=== PATIENT | female | born 1940 | race Caucasian/White ===

== ENCOUNTER → 2016-12-25 | Day surgery (SDC) | payer MEDICARE, BC ==
[~2016-12-25] MED LIST: LACTATED RINGER'S 1000 ML INJ 1,000 ML ONE; PROPOFOL 500 MG/50 ML BTL IV ONE
--- NOTE | 2016-12-25 14:13 | GIPROC ---
[facility] [address] [facility], [address] EGD PROCEDURE REPORT EXAM DATE: 12/25/2016 PATIENT NAME: Maggi Breen MR #: [id number] BIRTHDATE: 1940 ATTENDING: Susie Turk MD ORDER #: [id number] CRIMINAL JUSTICE DEPARTMENT CHAIR: STATUS: outpatient INDICATIONS: The patient is a 76 yr old female here for an EGD due to anemia history of gastric ulcer PROCEDURE PERFORMED: EGD w/ biopsy MEDICATIONS: None and Per Anesthesia. TOPICAL ANESTHETIC: none CONSENT: The patient understands the risks and benefits of the procedure and understands that these risks include, but are not limited to: sedation, allergic reaction, infection, perforation and/or bleeding. Alternative means of evaluation and treatment include, among others: physical exam, x-rays, and/or surgical intervention. The patient elects to proceed with this endoscopic procedure. medical equipment was checked for proper function. Hand hygiene and appropriate measures for infection prevention was taken. After the risks, benefits and alternatives of the procedure were thoroughly explained, Informed consent was verified, confirmed and timeout was successfully executed by the treatment team. The patient was anesthetized with topical anesthesia and the EC-3490Li ([id number]) endoscope was introduced through the mouth and advanced to the second portion of the duodenum. Retroflexed views revealed a hiatal hernia The gastroscope was then slowly withdrawn and removed. Healed ulcer antrum-biopsy submucosal nodule -biopsy esophagitis distal esophagus -biopsy. ADVERSE EVENTS: There were no complications. IMPRESSIONS: 1. Healed ulcer antrum-biopsy submucosal nodule -biopsy esophagitis distal esophagus -biopsy 2. Retroflexed views revealed a hiatal hernia RECOMMENDATIONS: 1. Await biopsy results. Biopsy results will not be ready for 7-10 days. If you don't hear from us in two weeks, call our office for biopsy results. 2. Continue PPI 3. Start PPI 4. Avoid NSAIDS PATIENT CONDITION: stable DISPOSITION: Home REPEAT EXAM: Return 1 year EGD Susie Turk MD eSigned: Susie Turk MD 12/25/2016 2:12 PM cc: Kurt Jones [facility] Linda Ibrahim M.D. PATIENT NAME: Maggi Breen MR#: [id number]
--- NOTE | 2016-12-25 14:15 | GIPROC ---
[facility] [address] [facility], [address] COLONOSCOPY PROCEDURE REPORT EXAM DATE: 12/25/2016 PATIENT NAME: Maggi Breen MR #: [id number] BIRTHDATE: 1940 ENDOSCOPIST: Susie Turk MD ORDER #: [id number] COOKER MECHANIC: STATUS: outpatient INDICATIONS: The patient is a 76 yr old female here for a colonoscopy due to high risk patient with personal history of colonic polyps PROCEDURE PERFORMED: Colonoscopy, screening MEDICATIONS: None and Per Anesthesia. PREP QUALITY: good PREP TYPE:Other: ESTIMATED BLOOD LOSS: None CONSENT: The patient understands the risks and benefits of the procedure and understands that these risks include, but are not limited to: sedation, allergic reaction, infection, perforation and/or bleeding. Alternative means of evaluation and treatment include, among others: physical exam, x-rays, and/or surgical intervention. The patient elects to proceed with this endoscopic procedure. medical equipment was checked for proper function. Hand hygiene and appropriate measures for infection prevention was taken. After the risks, benefits and alternatives of the procedure were thoroughly explained, Informed consent was verified, confirmed and timeout was successfully executed by the treatment team. A digital exam revealed external hemorrhoids The EC-3490Li ([id number]) and EC-3490Li ([id number]) endoscope was introduced through the anus and advanced to the cecum, which was identified by both the appendix and ileocecal valve. The instrument was then slowly withdrawn as the colon was fully examined. COLON FINDINGS: Severe diverticulosis sigmoid,descending. Retroflexed views revealed internal hemorrhoids and Retroflexed views revealed small internal hemorrhoids The scope was then completely withdrawn from the patient and the procedure terminated. PROCEDURE WITHDRAWAL TIME:6minutes ADVERSE EVENTS: There were no complications. IMPRESSIONS: 1. Severe diverticulosis sigmoid,descending 2. Retroflexed views revealed internal hemorrhoids 3. Retroflexed views revealed small internal hemorrhoids 4. Revealed external hemorrhoids RECOMMENDATIONS: 1. Benefiber 2 tsp daily 2. Probiotics from any [employer] or health food store 3. Yearly rectal exams RECALL: Return 5 years Colonoscopy Susie Turk MD eSigned: Susie Turk MD 12/25/2016 2:14 PM cc: Kurt Jones [facility] Mckeon and Ave Ibrahim M.D.
== END | disposition home or self-care (01) ==
LOC: ESDC 10:05
PROVIDERS: ATTEND Internal Medicine Gastroenterology
DX: Z12.11 Encounter for screening for malignant neoplasm of colon (principal); Z86.010 Personal history of colon polyps; K64.4 Residual hemorrhoidal skin tags; K57.90 Diverticulosis of intestine, part unspecified, without perforation or abscess without bleeding; K64.8 Other hemorrhoids; D64.9 Anemia, unspecified; K25.9 Gastric ulcer, unspecified as acute or chronic, without hemorrhage or perforation; K44.9 Diaphragmatic hernia without obstruction or gangrene; K20.9 Esophagitis, unspecified
CPT/HCPCS: 00740; 00810; 43239; 45378; 88305; 88312; J3010; J7120

== ENCOUNTER → 2017-02-17 | Outpatient (CLI) | payer MEDICARE, BC ==
[~2017-02-17] MED LIST changes: +AMBI10TA PO; +AMLO5TAB2 PO; +CALC1TAB12 PO; +COMMODE 3-IN-11 MIS; +ENOX30P SQ; +FLUT1INH INH; +HYDR-3288 PO; -LACTATED RINGER'S 1000 ML INJ 1,000 ML ONE; +LEVO50TA4 PO; +LIPI20TA PO; +MELA1TAB18 PO; +OCUVTAB4 PO; +OMEG100046 PO; +PANT40TA3 PO; +PAXI30TA7 PO; -PROPOFOL 500 MG/50 ML BTL IV ONE; +SIMV40TA PO; +SUCR1TAB PO
[2017-02-17 11:12] LABS: AUTOMATED NEUTROPHIL # 4.3 TH/MM3 (1.8-7.7); BASOPHIL % 0.5 % (0.0-2.0); EOSINOPHIL # 0.1 TH/MM3 (0-0.4); EOSINOPHIL % 1.2 % (0.0-4.0); HEMATOCRIT 31.2 % (35.0-46.0); HEMO FLAGS DIFF FINAL; LYMPH % 21.4 % (9.0-44.0); LYMPHOCYTE # 1.3 TH/MM3 (1.0-4.8); MEAN CELL VOLUME 92.6 FL (80.0-100.0); MEAN CORPUSCULAR HEMOGLOBIN 31.4 PG (27.0-34.0); NEUT % 69.9 % (16.0-70.0); PLATELET COUNT 302 TH/MM3 (150-450); RED BLOOD COUNT 3.37 MIL/MM3 (4.00-5.30); RED CELL DISTRIBUTION WIDTH 14.3 % (11.6-17.2); WHITE BLOOD COUNT 6.2 TH/MM3 (4.0-11.0)
[2017-02-17 11:23] LABS: APTT (PATIENT) 26.8 SEC (24.3-30.1); PROTHROMBIN TIME - PATIENT 11.3 SEC (9.8-11.6)
[2017-02-17 11:34] LABS: BLOOD, URINE NEG (NEG); GLUCOSE,URINE NEG (NEG); KETONE, URINE NEG (NEG); NITRITE,URINE NEG (NEG); PH, URINE 5.5 (5.0-8.5); URINE COLOR YELLOW (YELLW/STRAW)
[2017-02-17 11:49] LABS: ANION GAP 9 MEQ/L (5-15); AST (GOT) 22 U/L (15-37); BICARBONATE 27.3 MEQ/L (21.0-32.0); BLOOD UREA NITROGEN 8 MG/DL (7-18); CHLORIDE 105 MEQ/L (98-107); GLOMERULAR FILTRATION RATE 110 ML/MIN (>89); GLUCOSE,FASTING 111 MG/DL (74-99); POTASSIUM 3.9 MEQ/L (3.5-5.1); SODIUM (NA) 141 MEQ/L (136-145)
[2017-02-17 11:57] LABS: WESTERGREN SEDIMENTATION RATE 57 mm/hr (0-30)
[2017-02-17 11:59] LABS: ALKALINE PHOSPHATASE 71 U/L (45-117); ALT (GPT) 19 U/L (10-53); TOTAL BILIRUBIN ADULT 0.3 MG/DL (0.2-1.0)
[2017-02-17 12:04] LABS: MUCUS URINE MANY /lpf (OCC); RBC, URINE 0-3 /hpf (0-3)
[2017-02-17 12:05] LABS: BACTERIA, URINE OCC /hpf; COMMENT (UR) CULT NOT INDICATED; CULTURE IF INDICATED CULT NOT INDICATED
--- NOTE | 2017-02-17 12:46 | RADRPT ---
EXAM DATE/TIME: 02/17/2017 11:52 [facility] COMPARISON: No previous studies available for comparison. INDICATIONS : Evaluate for pneumonia, pneumothorax or communicable disease. Pre-op right hip. MEDICAL HISTORY : Hypertension. Chronic obstructive pulmonary disease. SURGICAL HISTORY : None. ENCOUNTER: Initial ACUITY: 1 day PAIN SCORE: 0/10 LOCATION: chest FINDINGS: There is hyperinflation of the lungs suggestive of emphysema. The heart and mediastinal structures ar e normal. The pulmonary vascular pattern is normal. No focal infiltrate is noted. Degenerative change s and scoliosis of the thoraco-lumbar spine are noted. CONCLUSION: 1. Hyperinflation of lungs suggestive of emphysema. 2. No acute focal pulmonary or pulmonary vascular congestion. 3. Degenerative changes and scoliosis of the thoraco-lumbar spine. Thomas Wright MD on February 17, 2017 at 12:43 Board Certified Radiologist. This report was verified electronically.
--- NOTE | 2017-02-18 18:27 | EKG ---
Date Performed: 02/17/2017 Time Performed: 09:52:50 PTAGE: 77 years EKG: Sinus rhythm Short AL interval NO PREVIOUS TRACING DOCTOR: Margarito Wilkinson Interpretating Date/Time 02/18/2017 18:25:41
== END ==
LOC: CPRE 09:17
PROVIDERS: ATTEND Orthopaedic Surgery Sports Medicine
DX: Z01.812 Encounter for preprocedural laboratory examination (principal); Z01.811 Encounter for preprocedural respiratory examination; Z01.810 Encounter for preprocedural cardiovascular examination; M16.11 Unilateral primary osteoarthritis, right hip
CPT/HCPCS: 36415; 71020; 80053; 81001; 85025; 85610; 85652; 85730; 93005

== ENCOUNTER 2017-03-10 05:13 | Inpatient (IN) | payer MEDICARE, BC ==
[~2017-03-10] VITALS: Ht 152.4 cm; Wt 53.6 kg
[~2017-03-10 05:13] MED LIST changes: -AMBI10TA PO; -COMMODE 3-IN-11 MIS; -ENOX30P SQ; -HYDR-3288 PO; -LIPI20TA PO
[2017-03-10] MEDS ORDERED: METOPROLOL TARTRATE 25 MG TAB PO PRN (05:45)
[2017-03-10] MEDS ORDERED: LACTATED RINGER'S 1000 ML IV PRN (05:45)
[2017-03-10] MEDS ORDERED: SODIUM CHLORID 0.9% 500 ML IV PRN (05:45)
[2017-03-10] MEDS ORDERED: VANCOMYCIN 1000 MG/NS 250 ML (for <70 kg) IV SCH ×2 (05:45)
[2017-03-10] MEDS ORDERED: POVIDONE IODINE 7.5% SCRUB 118 ML BOTTLE TOPICAL SCH (05:45)
[2017-03-10] MEDS ORDERED: CHLORHEXIDINE GLUCONATE 2 % 1 PACK (2 CLOTHS) TOPICAL PRN (05:45)
[2017-03-10] MEDS ORDERED: INSULIN HUMAN REGULAR 1,000 UNITS/10 ML VIAL SQ PRN (05:45)
[2017-03-10] MEDS ORDERED: ceFAZolin 2 GM PREMIX 50 ML IV SCH (05:45)
[2017-03-10] MEDS ORDERED: POVIDONE IODINE 5% (ANTISEPSIS KIT) 4 APPLICATIONS EACH NARE PRN (05:45)
[2017-03-10] MEDS ORDERED: CHLORHEXIDINE GLUCONATE 4% SOLN 120 ML BTL TOPICAL SCH (05:45)
[2017-03-10] MEDS ORDERED: LIPI20TA PO (06:03)
[2017-03-10] MEDS ORDERED: AMBI10TA PO (06:03)
[2017-03-10] MEDS ORDERED: GENTAMICIN SULFATE 80 MG/2 ML VIAL ONE (06:08)
[2017-03-10] MEDS ORDERED: HYDR-3288 PO (06:55)
[2017-03-10] MEDS ORDERED: ENOX30P SQ ×2 (06:56→06:59)
[2017-03-10] MEDS ORDERED: DEXAMETHASONE SOD PHOS 20 MG/5 ML VIAL IV SCH (07:00)
[2017-03-10] MEDS ORDERED: ONDANSETRON HCL 4 MG/2 ML VIAL IVP PRN (07:00)
[2017-03-10] MEDS ORDERED: Post-op Orders (for Pharmacy) XX ONE (07:00)
[2017-03-10] MEDS ORDERED: diphenhydrAMINE HCL 50 MG/ML VIAL IV PUSH PRN (07:00)
[2017-03-10] MEDS ORDERED: ZOLPIDEM TARTRATE 5 MG TAB PO PRN (07:00)
[2017-03-10] MEDS ORDERED: TRANEXAMIC PERI-ARTICULAR 3,000 MG/NS 100 ML P-ARTICULR SCH ×2 (07:00)
[2017-03-10] MEDS ORDERED: EXPAREL PERI-ARTICULAR INJECTION (TOTAL VOL. 60 ML) P-ARTICULR SCH ×2 (07:00)
[2017-03-10] MEDS ORDERED: ACETAMINOPHEN/HYDROcodone 325 MG/10 MG TAB PO PRN ×2 (07:00)
[2017-03-10] MEDS ORDERED: BISACODYL 10 MG SUPP RECTAL PRN (07:00)
[2017-03-10] MEDS ORDERED: SODIUM CHLORIDE 0.9% IV SCH (07:15)
[2017-03-10] MEDS ORDERED: TRANEXAMIC ACID IV SCH (07:15)
[2017-03-10] MEDS ORDERED: ACETAMINOPHEN 1000 MG/100 ML 100 ML IV ONE (07:29)
[2017-03-10] MEDS ORDERED: MELATONIN 5 MG TAB PO PRN (08:15)
--- NOTE | 2017-03-10 08:55 | MP ---
cc: TRISH GARCIA M.D. DATE OF SURGERY 03/10/2017 PREOPERATIVE DIAGNOSIS Right hip osteoarthritis. POSTOPERATIVE DIAGNOSIS Right hip osteoarthritis. PROCEDURE Right total hip arthroplasty. SURGEON Dr. Trish Garcia BOILER CONTROL ROOM OPERATOR Too Collado PA-C ANESTHESIA General. ESTIMATED BLOOD LOSS 200 cc COMPLICATIONS None. IMPLANTS USED DePuy Corail size 13 Press-Fit standard offset femoral stem, size 52 [place] Gription cup, size 36-mm [place] Chrome head, +8.5 neck. JUSTIFICATION This patient is a 77-year-old female with a history of severe end-stage osteoarthritis involving the right hip. She has severe disabling pain with standing, walking, ambulation, weight-bearing activities which interferes with activities of daily living. She has failed greater than three months of nonoperative conservative treatment to include medication therapy, injections, ambulatory assistive aids, home exercise program, activity modification. The patient is not overweight. X-rays of the right hip reveal severe end-stage osteoarthritis, [id number] joint space narrowing, subchondral sclerosis, subchondral cyst, osteophyte formation and subluxation. The patient was counseled as to the risks, benefits and alternatives to a total hip arthroplasty. The risks were discussed which include but are not limited to anesthesia complication, infection, damage to nerves or blood vessels, pain, fracture, leg length discrepancies, blood clots, dislocation, pulmonary embolism. The patient favored the benefits over the risks. She did wish to proceed with surgery. PROCEDURE IN DETAIL Written consent was obtained. The patient was identified by name and taken to the operating room, placed supine on the operating room table. General anesthesia was administered as well as 2 grams of IV Ancef and 1 gram of IV vancomycin. The left and right feet were placed in padded traction boots. The right hip and right lower extremity were prepped and draped using isopropyl alcohol, Hibiclens solution and Chloraprep solution. After a time-out was performed, a longitudinal incision was made over the anterolateral aspect of the right hip. The fascial layer was incised. Dissection was carried over tensor fascia charline, beneath the rectus femoris to allow exposure of the anterior hip capsule. A capsulotomy was performed. An oscillating saw was used to perform a femoral neck cut. The osteoarthritic femoral head and neck was removed. A 10-blade scalpel was used to excise the labrum. Sequential reaming began at size 45, was carried through to size 52. Subsequently a [place] Gription cup was implanted in approximately 45 degrees of abduction and approximately 10 degrees of anteversion. There was good purchase and fixation at the insertion of the cup. A screw hole eliminator was placed followed by the neutral liner and the liner impacted in place and tested for stability. Attention was turned to the femur where the leg was externally rotated, extended and adducted. A box-cutting ostium was used to gain entrance into the intramedullary canal and femur. It was followed by sequential broaching up to size 13. The calcar planer was used to plane the calcar. Trial head and neck combinations were evaluated and the final components implanted with the current components. The leg could achieve external rotation up to 70 degrees and extension all the down to the ground without evidence of anterior instability or impingement. Fluoroscopic imaging showed appropriate implantation of components and soft tissue tension felt appropriate. The surgical wound was thoroughly irrigated with sterile saline pulse lavage antibiotic impregnated solution. The fascial layer was closed with #1 Vicryl suture, the subcutaneous layer with 2-0 Vicryl suture. The skin was closed with Dermabond. Sterile dressings were applied. The patient tolerated the procedure well, no intraoperative complications noted. Too Collado, physician housing assistant property manager certified, was present during the entire procedure to include patient positioning and the procedure itself. The medical necessity of a physician housing assistant property manager was indicated in this case due to the complexity of the procedure. He assisted with appropriate manipulation of the leg and retraction of muscle, tendon, bone and neurovascular structures. He assisted with preparation of bone and also implantation of the prosthetic replacement. Trish Garcia MD JWM/SSB /8:28 AM /8:37 AM
[2017-03-10] MEDS: PANTOPRAZOLE SOD 40 MG DELAYED RELEASE TAB PO SCH (09:00)
[2017-03-10] MEDS: amLODIPine BESYLATE 5 MG TAB PO SCH ×2 (09:00→21:10)
[2017-03-10] MEDS ORDERED: DO NOT ADM ANY ANTICOAGULANT DRUGS PRN (09:00)
[2017-03-10] MEDS: LEVOTHYROXINE SODIUM 50 MCG TAB PO SCH (09:00)
[2017-03-10] MEDS: SUCRALFATE 1 GM TAB PO SCH ×3 (09:00→17:30)
[2017-03-10] MEDS: SODIUM CHLOR 0.9% 1000 ML INJ 1,000 ML IV SCH ×2 (09:10→22:59)
[2017-03-10] MEDS ORDERED: *morphine SULFATE 8 MG/ML PERIprocedure ONLY ONE (09:11)
--- NOTE | 2017-03-10 09:22 | RADRPT ---
EXAM DATE/TIME: 03/10/2017 07:17 [facility] COMPARISON: No previous studies available for comparison. INDICATIONS : Right total hip arthroplasty. MEDICAL HISTORY : Unobtainable. SURGICAL HISTORY : Unobtainable. ENCOUNTER: Initial ACUITY: 1 day PAIN SCORE: Non-responsive. LOCATION: Right hip. CONCLUSION: Fluoroscopic images right hip arthroplasty. Ryder Bolden MD on March 10, 2017 at 9:20 Board Certified Radiologist. This report was verified electronically.
--- NOTE | 2017-03-10 09:37 | PD.CONS ---
[facility] By [facility] team Reason for Consult Medical management Primary Care Physician Ave Malagon M.D. Diagnoses: History of Present Illness The patient is a very pleasant 77-year-old female with past medical history of posterior arthritis, retention, hyperlipidemia, hypothyroidism and COPD, anxiety /depression who came for same day surgery for right he surgery. The patient was seen after surgery she seemed bed appears in not acute distress at this time. Denies any chest pain or shortness of breath no wheezing. No palpitations. She has constipation last bowel movement was 2 days ago. No abdominal pain no nausea or vomiting. Pain is fairly controlled by medications. Review of Systems Except as stated in HPI: all other systems reviewed are Neg Past Family Social History Allergies: Coded Allergies: NSAIDS (Non-Steroidal Anti-Inflamma (Verified Adverse Reaction, Severe, Ulcers, 03/10/17) GI BLEED IN OCTOBER. WAS TOLD NO NSAIDS DUE TO BLEEDING. NOT ALLERGIC Past Medical History HTN, HLD, COPD, hypothyroidism, depression/anxiety Past Surgical History Right knee surgery Right wrist surgery Oophorectomy Bilateral eye cataract surgery Dental surgeries Reported Medications Reported Meds & Active Scripts Active Lovenox Inj (Enoxaparin Sodium) 30 Mg/0.3 Ml Syr 30 Mg SQ DAILY [place] (Hydrocodone-Acetaminophen) 7.5-325 mg Tab 1-2 Tab PO Q6H PRN Reported Ambien (Zolpidem Tartrate) 10 Mg Tab 10 Mg PO HS PRN Lipitor (Atorvastatin Calcium) 20 Mg Tab 20 Mg PO HS Breo Ellipta Inh (Fluticasone/Vilanterol) 100-25 Mcg/Act Inh 1 Puff INH DAILY Use daily at the same time. Melatonin 10 Mg-1 Mg Tab 10 Mg PO HS PRN Paxil (Paroxetine HCl) 30 Mg Tab 20 Mg PO HS Preservision Areds (Multiple Vitamins W/ Minerals) 1 Tab 1 Tab PO DAILY Amlodipine (Amlodipine Besylate) 5 Mg Tab 5 Mg PO BID Pantoprazole (Pantoprazole Sodium) 40 Mg Tab 40 Mg PO DAILY Sucralfate 1 Gram Tab 1 Gm PO TID on empty stomach, PT WITH RECENT GI BLEED Levothyroxine (Levothyroxine Sodium) 50 Mcg Tab 50 Mcg PO DAILY Family History Brother with hypertension, hyperlipidemia Social History Denies alcohol use, illicit drug use or tobacco use. Physical Exam Vital Signs Vital Signs Date Time Temp Pulse Resp B/P (MAP) Pulse Ox O2 Delivery O2 Flow Rate FiO2 03/10/17 08:46 98.5 80 16 130/58 (82) 93 Nasal Cannula 2 03/10/17 06:08 98.9 66 20 143/68 (93) 98 Physical Exam GENERAL: This is a well-nourished, well-developed patient, in no apparent distress. SKIN: No rashes, ecchymoses or lesions. Cool and dry. HEAD: Atraumatic. Normocephalic. No temporal or scalp tenderness. EYES: Pupils equal round and reactive. Extraocular motions intact. No scleral icterus. No injection or drainage. ENT: Nose without bleeding, purulent drainage or septal hematoma. Throat without erythema, tonsillar hypertrophy or exudate. Uvula midline. Airway patent. NECK: Trachea midline. No JVD or lymphadenopathy. Supple, nontender, no meningeal signs. CARDIOVASCULAR: Regular rate and rhythm without murmurs, gallops, or rubs. RESPIRATORY: Clear to auscultation. Breath sounds equal bilaterally. No wheezes , rales, or rhonchi. GASTROINTESTINAL: Abdomen soft, non-tender, nondistended. No hepato-splenomegaly , or palpable masses. No guarding. MUSCULOSKELETAL: Status post surgery right hip. Dressing CDI. Extremities without clubbing, cyanosis, or edema. No joint tenderness, effusion, or edema noted. No calf tenderness. Negative Homans sign bilaterally. NEUROLOGICAL: Awake and alert. Cranial nerves II through XII intact. Motor and sensory grossly within normal limits. Five out of 5 muscle strength in all muscle groups. Normal speech. Assessment and Plan Assessment and Plan Right hip osteoarthritis s/p Right total hip arthroplasty 03/10/17 Management per ortho Pain med sper pain scale Antiemetics, laxatives/stool softeners as need HTN restart home meds Monitor BP and adjust meds if need HLD continue home meds Hypothyroidism continue home meds Depression/anxiety continue home meds stable at this time COPD without exacerbation continue ghome meds. Monitor VS. O2 supplement if need keep O2 sat > 94% DVT ppx SCD/TEDs. chemical ppx per surgeon Thank you for this consultations Discussed Condition With patient, nurse Tory Santana MD Mar 10, 2017 09:37
[2017-03-10 10:20] VITALS: BP 113/58; PULSE 73; RESP 18; TEMP 97.3; O2SAT 93
[2017-03-10] MEDS ORDERED: ACETAMINOPHEN/HYDROcodone 325 MG/5 MG TAB PO PRN (11:00)
[2017-03-10] MEDS ORDERED: NALOXONE HCL 0.4 MG/ML AMP IV PUSH PRN (11:00)
[2017-03-10] MEDS: MORPHINE SULFATE 4 MG/ML INJ IV PUSH PRN ×2 (11:08→17:18)
[2017-03-10] MEDS ORDERED: RESP: ALBUTEROL 2.5 MG/IPRATROPIUM 0.5 MG NEB (PRN) NEB (11:15)
[2017-03-10 16:00] VITALS: BP 113/55; PULSE 79; RESP 18; TEMP 98.8; O2SAT 94
--- NOTE | 2017-03-10 16:58 | RADRPT ---
EXAM DATE/TIME: 03/10/2017 16:17 [facility] COMPARISON: No previous studies available for comparison. INDICATIONS : Post op right hip arthroplasty. MEDICAL HISTORY : Hypertension. Chronic obstructive pulmonary disease. SURGICAL HISTORY : None. ENCOUNTER: Initial ACUITY: 1 day PAIN SCORE: 4/10 LOCATION: Right hip FINDINGS: Examination of the right hip was performed with AP Pelvis. Postsurgical changes are noted following right hip replacement. Acetabular and femoral components are well seated and in satisfactory alignmen t. Bony pelvis is intact. Moderate left arthropathy is noted with significant joint space narrowing and subchondral sclerosis. CONCLUSION: Satisfactory postoperative appearance of the right hip status post replacement. No acute bony abnormality. Sonido Galindo MD on March 10, 2017 at 16:55 Board Certified Radiologist. This report was verified electronically.
[2017-03-10 20:00] VITALS: BP 142/63; PULSE 76; RESP 15; TEMP 96.2; O2SAT 97
[2017-03-10] MEDS: LACTULOSE SYRUP 20 GM/30 ML CUP PO PRN (21:10)
[2017-03-10] MEDS: ENOXAPARIN SODIUM 30 MG/0.3 ML SYRINGE SQ SCH (21:10)
[2017-03-10] MEDS: PARoxetine HCL 20 MG TAB PO SCH (21:10)
[2017-03-10] MEDS: ATORVASTATIN 20 MG TAB PO SCH (21:10)
[2017-03-10] MEDS: ACETAMINOPHEN/HYDROcodone 325 MG/10 MG TAB PO PRN (21:13)
[2017-03-11] VITALS (7 sets, daily range): BP systolic 100–138; BP diastolic 52–72; PULSE 75–96; RESP 17–18; TEMP 97.2–101.9; O2SAT 93–95
[2017-03-11] MEDS: MORPHINE SULFATE 4 MG/ML INJ IV PUSH PRN (01:54)
[2017-03-11] MEDS: SODIUM CHLOR 0.9% 1000 ML INJ 1,000 ML IV SCH ×3 (03:00→22:56)
[2017-03-11] MEDS: LEVOTHYROXINE SODIUM 50 MCG TAB PO SCH (06:00)
[2017-03-11] MEDS: ACETAMINOPHEN/HYDROcodone 325 MG/10 MG TAB PO PRN ×4 (07:00→20:38)
--- NOTE | 2017-03-11 08:38 | HHI.PR ---
Subjective Remarks This is a pleasant 77 y/o Female with Hyperlipidemia, Hypothyroidism, COPD, Anxiety and Depression, brought in by Orthopedic Surgery for Scheduled Right total hip arthroplasty, we were consulted for Medical Management. 03/11: Stable in her bedroom, she has COPD continue Bronchodilator, Mucolytic incentive spirometry. No nausea, vomit or diarrhea. Hypokalemia replaced. Objective Vital Signs Date Time Temp Pulse Resp B/P (MAP) Pulse Ox O2 Delivery O2 Flow Rate FiO2 03/11/17 08:00 18 03/11/17 04:00 97.2 81 18 110/59 (76) 94 03/11/17 01:59 17 03/11/17 00:30 97.9 80 17 135/72 (93) 95 03/10/17 23:41 Room Air 03/10/17 20:00 96.2 76 15 142/63 (89) 97 03/10/17 16:00 98.8 79 18 113/55 (74) 94 03/10/17 10:20 97.3 73 18 113/58 (76) 93 03/10/17 09:45 74 16 108/56 (73) 96 Room Air 03/10/17 09:30 62 16 113/55 (74) 99 03/10/17 09:15 68 16 116/57 (76) 99 Nasal Cannula 2 03/10/17 09:00 72 16 127/57 (80) 100 Nasal Cannula 2 03/10/17 08:46 98.5 80 16 130/58 (82) 93 Nasal Cannula 2 I/O 03/10/17 03/10/17 03/10/17 03/11/17 03/11/17 03/11/17 07:00 15:00 23:00 07:00 15:00 23:00 Intake Total 1690 ml 1480 ml 100 ml Output Total 1000 ml 650 ml 2700 ml Balance 690 ml 830 ml -2600 ml Intake Oral 480 ml 480 ml IV Total 10 ml 1000 ml 100 ml Other 1200 ml Output Urine Total 900 ml 650 ml 2700 ml Estimated Blood Loss 100 ml # Bowel Movements 0 0 Imaging Last Impressions Hip and Pelvis X-Ray 03/10/17 0000 Signed Impressions: Service Date/Time: Friday, March 10, 2017 16:17 - CONCLUSION: Satisfactory postoperative appearance of the right hip status post replacement. No acute bony abnormality. Sonido Galindo MD Hip X-Ray 03/10/17 0000 Signed Impressions: Service Date/Time: Friday, March 10, 2017 07:17 - CONCLUSION: Fluoroscopic images right hip arthroplasty. Ryder Bolden MD Procedures Right hip osteoarthritis s/p Right total hip arthroplasty 03/10/17 Other Results Laboratory Tests Test 03/11/17 08:06 Objective Remarks GENERAL: This is a well-nourished, well-developed patient, in no apparent distress. SKIN: No rashes, ecchymoses or lesions. Cool and dry. HEAD: Atraumatic. Normocephalic. No temporal or scalp tenderness. EYES: Pupils equal round and reactive. Extraocular motions intact. No scleral icterus. No injection or drainage. ENT: Nose without bleeding, purulent drainage or septal hematoma. Throat without erythema, tonsillar hypertrophy or exudate. Uvula midline. Airway patent. NECK: Trachea midline. No JVD or lymphadenopathy. Supple, nontender, no meningeal signs. CARDIOVASCULAR: Regular rate and rhythm without murmurs, gallops, or rubs. RESPIRATORY: Clear to auscultation. Breath sounds equal bilaterally. No wheezes , rales, or rhonchi. GASTROINTESTINAL: Abdomen soft, non-tender, nondistended. No hepato-splenomegaly , or palpable masses. No guarding. MUSCULOSKELETAL: Status post surgery right hip. Dressing CDI. Extremities without clubbing, cyanosis, or edema. No joint tenderness, effusion, or edema noted. No calf tenderness. Negative Homans sign bilaterally. NEUROLOGICAL: Awake and alert. Cranial nerves II through XII intact. Motor and sensory grossly within normal limits. Five out of 5 muscle strength in all muscle groups. Normal speech. Medications and IVs Current Medications Medications (Trade) Dose Ordered Sig/Grover Route Start Time Stop Time Status Last Admin (Lopressor) 25 mg CASH APPLICATIONS REPRESENTATIVE PRN PO 03/10/17 05:45 03/13/17 05:44 (Betadine 5% Antisepsis Kit) 1 applic CASH APPLICATIONS REPRESENTATIVE PRN EACH NARE 03/10/17 05:45 03/13/17 05:44 03/10/17 06:05 (Chlorhexidine 2% Cloth) 3 pack CASH APPLICATIONS REPRESENTATIVE PRN TOPICAL 03/10/17 05:45 03/13/17 05:44 03/10/17 05:40 (NovoLIN R INJ) See Protocol Table ... CASH APPLICATIONS REPRESENTATIVE PRN SQ 03/10/17 05:45 03/13/17 05:44 (Betadine 7.5% Scrub) 1 applic ONCE TOPICAL 03/10/17 05:45 03/13/17 05:44 03/10/17 06:00 (Hibiclens 4% Top Soln) 1 applic ONCE TOPICAL 03/10/17 05:45 03/13/17 05:44 Cefazolin Sodium/ Dextrose 50 ml @ 100 mls/hr CASH APPLICATIONS REPRESENTATIVE IV 03/10/17 05:45 03/13/17 05:44 03/10/17 06:31 Vancomycin HCl 1000 mg/Sodium Chloride 250 ml @ 250 mls/hr CASH APPLICATIONS REPRESENTATIVE IV 03/10/17 05:45 03/13/17 05:44 03/10/17 06:30 (Norvasc) 5 mg BID PO 03/10/17 09:00 03/10/17 21:10 (Lipitor) 20 mg HS PO 03/10/17 21:00 03/10/17 21:10 (Synthroid) 50 mcg DAILY@0600 PO 03/10/17 09:00 03/11/17 06:00 (Protonix) 40 mg DAILY PO 03/10/17 09:00 (Carafate) 1 gm TID PO 03/10/17 09:00 03/10/17 17:30 (Melatonin) 10 mg HS PRN PO 03/10/17 08:15 (Paxil) 20 mg HS PO 03/10/17 21:00 03/10/17 21:10 Sodium Chloride 1,000 ml @ 100 mls/hr Q10H IV 03/10/17 07:00 03/10/17 22:59 (Lovenox Inj) 30 mg Q24H SQ 03/10/17 21:00 03/10/17 21:10 (Morphine Inj) 3 mg Q3H PRN IV PUSH 03/10/17 07:00 03/11/17 01:54 (Theragran M Tab) 1 tab BID PO 03/11/17 21:00 05/10/17 20:59 (Zofran Inj) 4 mg Q6H PRN IVP 03/10/17 07:00 (Colace) 100 mg BID PO 03/11/17 21:00 (Ambien) 5 mg HS PRN PO 03/10/17 07:00 (Dulcolax Supp) 10 mg DAILY PRN RECTAL 03/10/17 07:00 (Benadryl Inj) 25 mg Q6H PRN IV PUSH 03/10/17 07:00 Miscellaneous Information ALL NURSING DEPARTME... UNSCH PRN .XX 03/10/17 09:00 03/11/17 08:59 ([place] 5-325 Mg) 1 tab Q4H PRN PO 03/10/17 11:00 03/10/17 14:30 ([place] 10-325 Mg) 1 tab Q4H PRN PO 03/10/17 11:00 03/11/17 07:00 (Narcan Inj) 0.4 mg UNSCH PRN IV PUSH 03/10/17 11:00 (Lactulose Liq) 30 ml DAILY PRN PO 03/10/17 11:00 03/10/17 21:10 (Duoneb Neb) 1 ampule Q4HR NEB PRN NEB 03/10/17 11:15 (Breo Ellipta 100-25 Inh) 1 puff DAILY INH 03/11/17 09:00 A/P Assessment and Plan 1. Right hip osteoarthritis s/p Right total hip arthroplasty 03/10/17 Continue Pain management, PT, analytical manager. 2. Hypertension controlled. 3. Hyperlipidemia to continue Statin 4. Depression/anxiety stable 5. COPD non exacerbated at this time continue Bronchodilator, Mucolytic and incentive spirometry. 6. Hypothyroidism to continue Hormonal replacement. DVT ppx SCD/TEDs. chemical ppx per surgeon Discussed Condition With Patient and nurse. Nicholas Stone MD Mar 11, 2017 08:38
[2017-03-11 08:39] LABS: HEMATOCRIT 22.2 % (35.0-46.0); MEAN CELL VOLUME 91.6 FL (80.0-100.0); MEAN CORPUSCULAR HEMOGLOBIN 31.3 PG (27.0-34.0); MEAN CORPUSCULAR HGB CONC 34.2 % (32.0-36.0); PLATELET COUNT 208 TH/MM3 (150-450); RED BLOOD COUNT 2.42 MIL/MM3 (4.00-5.30); RED CELL DISTRIBUTION WIDTH 13.5 % (11.6-17.2); REVIEW FLAG FINAL
--- NOTE | 2017-03-11 08:57 | PD.ORT.PN ---
Subjective Post Op Day #: 1 Subjective Remarks painful this morning, did well in PT yesterday Objective Vitals Vital Signs Date Time Temp Pulse Resp B/P (MAP) Pulse Ox O2 Delivery O2 Flow Rate FiO2 03/11/17 08:00 18 03/11/17 04:00 97.2 81 18 110/59 (76) 94 03/11/17 01:59 17 03/11/17 00:30 97.9 80 17 135/72 (93) 95 03/10/17 23:41 Room Air 03/10/17 20:00 96.2 76 15 142/63 (89) 97 03/10/17 16:00 98.8 79 18 113/55 (74) 94 03/10/17 10:20 97.3 73 18 113/58 (76) 93 03/10/17 09:45 74 16 108/56 (73) 96 Room Air 03/10/17 09:30 62 16 113/55 (74) 99 03/10/17 09:15 68 16 116/57 (76) 99 Nasal Cannula 2 03/10/17 09:00 72 16 127/57 (80) 100 Nasal Cannula 2 I/O 03/10/17 03/10/17 03/10/17 03/11/17 03/11/17 03/11/17 07:00 15:00 23:00 07:00 15:00 23:00 Intake Total 1690 ml 1480 ml 100 ml Output Total 1000 ml 650 ml 2700 ml Balance 690 ml 830 ml -2600 ml Intake Oral 480 ml 480 ml IV Total 10 ml 1000 ml 100 ml Other 1200 ml Output Urine Total 900 ml 650 ml 2700 ml Estimated Blood Loss 100 ml # Bowel Movements 0 0 Result Diagram: 03/11/17 0806 Objective Remarks in bed, nad dressing c/d/i neg homans nvi Assessment & Plan Ortho Post Op Day #: 1 Problem List: Assessment and Plan s/p R JETHRO wbat ok to maintain dressing unless saturated lovenox d/c planning home with [facility] and pt rx in chart f/up dr. brady 2 weeks Tod Collado Mar 11, 2017 08:57
--- NOTE | 2017-03-11 08:58 | HHI.DCPOC ---
Discharge Care Plan Diagnosis: (1) Primary localized osteoarthrosis, pelvic region and thigh Your Health Problems Are: Difficulty with ADL Goals to Promote Your Health * To prevent worsening of your condition and complications * To maintain your health at the optimal level Directions to Meet Your Goals Take your medications as prescribed Follow your dietary instruction Follow activity as directed Keep your appointments as scheduled Take your immunizations and boosters as scheduled If your symptoms worsen call your PCP, if no PCP go to Urgent Care Center or Emergency Room Smoking is Dangerous to Your Health. Avoid second hand smoke Call the 24-hour hour crisis hotline for domestic abuse at Tod Collado Mar 11, 2017 08:58
[2017-03-11] MEDS: amLODIPine BESYLATE 5 MG TAB PO SCH ×2 (09:00→20:39)
[2017-03-11] MEDS ORDERED: COMMODE 3-IN-11 MIS (09:00)
--- NOTE | 2017-03-11 09:00 | HHI.FF ---
Face to Face Verification Diagnosis: (1) Primary localized osteoarthrosis, pelvic region and thigh Physical Therapy Gait training, Safety evaluation, Transfer training, bed to chair Right LE Weight Bearing: WB as tolerated Nursing RN: 3 days/week x 2 weeks Nursing: Robyn teaching, Dressing changes Dressing Changes: Daily dressing change Additional Instructions dry dressing changes if current dressing becomes saturated I have seen patient Maggi Breen on 03/11/17. My clinical findings support the need for the requested home health care services because: Limited ability to care for self High risk of falls I certify that my clinical findings support that this patient is homebound because: Post-op weakness Unsteady gait/balance Tod Collado Mar 11, 2017 09:00
[2017-03-11 09:07] LABS: BICARBONATE 27.3 MEQ/L (21.0-32.0); POTASSIUM 3.3 MEQ/L (3.5-5.1)
[2017-03-11] MEDS: SUCRALFATE 1 GM TAB PO SCH ×3 (10:50→18:24)
[2017-03-11] MEDS: FLUTICASONE 100 MCG/VILANTEROL 25 MCG INHALER INH SCH (10:50)
[2017-03-11] MEDS: PANTOPRAZOLE SOD 40 MG DELAYED RELEASE TAB PO SCH (10:50)
[2017-03-11] MEDS: ENOXAPARIN SODIUM 30 MG/0.3 ML SYRINGE SQ SCH (20:38)
[2017-03-11] MEDS: ATORVASTATIN 20 MG TAB PO SCH (20:39)
[2017-03-11] MEDS: MULTIVITAMINS/MINERALS THERAPEUTIC TAB PO SCH (20:39)
[2017-03-11] MEDS: PARoxetine HCL 20 MG TAB PO SCH (20:39)
[2017-03-11] MEDS: DOCUSATE SODIUM 100 MG CAP PO SCH (20:39)
[2017-03-12] VITALS (8 sets, daily range): BP systolic 95–133; BP diastolic 49–66; PULSE 67–91; RESP 16–19; TEMP 97.5–100.5; O2SAT 93–97
[2017-03-12] MEDS: ACETAMINOPHEN/HYDROcodone 325 MG/10 MG TAB PO PRN ×5 (01:15→20:24)
[2017-03-12] MEDS: LEVOTHYROXINE SODIUM 50 MCG TAB PO SCH (05:12)
--- NOTE | 2017-03-12 08:32 | PD.ORT.PN ---
Subjective Post Op Day #: 2 Subjective Remarks hip pain slightly better. feels light headed. N/V yesterday. Objective Vitals Vital Signs Date Time Temp Pulse Resp B/P (MAP) Pulse Ox O2 Delivery O2 Flow Rate FiO2 03/12/17 04:29 97.5 91 19 116/62 (80) 93 03/11/17 23:39 100.9 96 18 134/62 (86) 93 03/11/17 20:47 Room Air 03/11/17 19:59 101.9 95 18 138/60 (86) 94 03/11/17 16:12 18 03/11/17 16:00 100.9 78 18 123/57 (79) 94 03/11/17 12:00 100.3 85 18 100/52 (68) 95 I/O 03/11/17 03/11/17 03/11/17 03/12/17 03/12/17 03/12/17 07:00 15:00 23:00 07:00 15:00 23:00 Intake Total 100 ml 600 ml 240 ml 360 ml Output Total 2700 ml Balance -2600 ml 600 ml 240 ml 360 ml Intake Oral 600 ml 240 ml 360 ml IV Total 100 ml Output Urine Total 2700 ml # Voids 4 1 2 # Bowel Movements 0 0 0 Result Diagram: 03/11/17 0806 03/11/17 0806 Objective Remarks in bed, nad dressing c/d/i neg homans nvi Assessment & Plan Ortho Post Op Day #: 2 Problem List: Assessment and Plan s/p R JETHRO wbat ok to maintain dressing unless saturated lovenox d/c planning home with [facility] and pt post-op anemia is symptomatic - transfuse 1 unit PRBC rx in chart f/up dr. brady 2 weeks Tod Collado Mar 12, 2017 08:32
[2017-03-12] MEDS: SODIUM CHLOR 0.9% 1000 ML INJ 1,000 ML IV SCH ×2 (09:00→22:22)
[2017-03-12] MEDS: SUCRALFATE 1 GM TAB PO SCH ×4 (09:00→20:21)
[2017-03-12] MEDS: amLODIPine BESYLATE 5 MG TAB PO SCH ×2 (09:00→20:20)
[2017-03-12] MEDS: PANTOPRAZOLE SOD 40 MG DELAYED RELEASE TAB PO SCH (09:32)
[2017-03-12] MEDS: DOCUSATE SODIUM 100 MG CAP PO SCH ×2 (09:32→20:20)
[2017-03-12] MEDS: MULTIVITAMINS/MINERALS THERAPEUTIC TAB PO SCH ×2 (09:32→20:20)
[2017-03-12] MEDS ORDERED: POTASSIUM CHLORIDE 20 MEQ CONTROLLED RELEASE TAB PO ONE ×3 (10:00→17:00)
[2017-03-12] MEDS: FLUTICASONE 100 MCG/VILANTEROL 25 MCG INHALER INH SCH (11:07)
[2017-03-12] MEDS: LACTULOSE SYRUP 20 GM/30 ML CUP PO PRN (11:08)
[2017-03-12] MEDS: MAGNESIUM OXIDE 400 MG TAB PO SCH (11:08)
[2017-03-12 11:48] LABS: HEMATOCRIT 23.2 % (35.0-46.0); MEAN CELL VOLUME 91.5 FL (80.0-100.0); MEAN CORPUSCULAR HEMOGLOBIN 31.8 PG (27.0-34.0); MEAN CORPUSCULAR HGB CONC 34.7 % (32.0-36.0); PLATELET COUNT 221 TH/MM3 (150-450); RED BLOOD COUNT 2.54 MIL/MM3 (4.00-5.30); RED CELL DISTRIBUTION WIDTH 13.5 % (11.6-17.2); REVIEW FLAG FINAL; WHITE BLOOD COUNT 6.3 TH/MM3 (4.0-11.0)
[2017-03-12 12:11] LABS: BICARBONATE 29.5 MEQ/L (21.0-32.0); POTASSIUM 3.1 MEQ/L (3.5-5.1)
--- NOTE | 2017-03-12 16:52 | HHI.PR ---
Subjective Remarks This is a pleasant 77 y/o Female with Hyperlipidemia, Hypothyroidism, COPD, Anxiety and Depression, brought in by Orthopedic Surgery for Scheduled Right total hip arthroplasty, we were consulted for Medical Management. 03/11: Stable in her bedroom, she has COPD continue Bronchodilator, Mucolytic incentive spirometry. 03/12: Seen in her bedroom, no new complaint, has recommended by Orthopedic Surgery weight bearing as tolerated, okay to maintain dressing unless saturated, continue Lovenox for DVT prophylaxis, Discharge planning to Home with [facility], has been recommended for blood transfusion of one unit of PRBCs, and follow up with Doctor Dubois in 2 weeks. Objective Vital Signs Date Time Temp Pulse Resp B/P (MAP) Pulse Ox O2 Delivery O2 Flow Rate FiO2 03/12/17 13:55 99.6 82 16 133/60 95 03/12/17 13:39 99.9 81 16 122/58 94 03/12/17 12:00 100.5 78 17 120/55 (76) 95 03/12/17 08:00 97.9 67 17 95/49 (64) 95 03/12/17 04:29 97.5 91 19 116/62 (80) 93 03/11/17 23:39 100.9 96 18 134/62 (86) 93 03/11/17 20:47 Room Air 03/11/17 19:59 101.9 95 18 138/60 (86) 94 I/O 03/11/17 03/11/17 03/11/17 03/12/17 03/12/17 03/12/17 07:00 15:00 23:00 07:00 15:00 23:00 Intake Total 100 ml 600 ml 240 ml 360 ml 480 ml Output Total 2700 ml Balance -2600 ml 600 ml 240 ml 360 ml 480 ml Intake Oral 600 ml 240 ml 360 ml 480 ml IV Total 100 ml Output Urine Total 2700 ml # Voids 4 1 2 2 # Bowel Movements 0 0 0 0 Result Diagram: 03/12/17 1025 03/12/17 1025 Imaging Last Impressions Hip and Pelvis X-Ray 03/10/17 0000 Signed Impressions: Service Date/Time: Friday, March 10, 2017 16:17 - CONCLUSION: Satisfactory postoperative appearance of the right hip status post replacement. No acute bony abnormality. Sonido Galindo MD Hip X-Ray 03/10/17 0000 Signed Impressions: Service Date/Time: Friday, March 10, 2017 07:17 - CONCLUSION: Fluoroscopic images right hip arthroplasty. Ryder Bolden MD Procedures Right hip osteoarthritis s/p Right total hip arthroplasty 03/10/17 Other Results Laboratory Tests Test 03/12/17 10:25 White Blood Count 6.3 TH/MM3 Red Blood Count 2.54 MIL/MM3 Hemoglobin 8.1 GM/DL Hematocrit 23.2 % Mean Corpuscular Volume 91.5 FL Mean Corpuscular Hemoglobin 31.8 PG Mean Corpuscular Hemoglobin Concent 34.7 % Red Cell Distribution Width 13.5 % Platelet Count 221 TH/MM3 Mean Platelet Volume 8.6 FL Blood Urea Nitrogen 6 MG/DL Creatinine 0.47 MG/DL Random Glucose 119 MG/DL Calcium Level 8.3 MG/DL Sodium Level 136 MEQ/L Potassium Level 3.1 MEQ/L Chloride Level 100 MEQ/L Carbon Dioxide Level 29.5 MEQ/L Anion Gap 7 MEQ/L Estimat Glomerular Filtration Rate 129 ML/MIN Objective Remarks GENERAL: This is a well-nourished, well-developed patient, in no apparent distress. SKIN: No rashes, ecchymoses or lesions. Cool and dry. HEAD: Atraumatic. Normocephalic. No temporal or scalp tenderness. EYES: Pupils equal round and reactive. Extraocular motions intact. No scleral icterus. No injection or drainage. ENT: Nose without bleeding, purulent drainage or septal hematoma. Throat without erythema, tonsillar hypertrophy or exudate. Uvula midline. Airway patent. NECK: Trachea midline. No JVD or lymphadenopathy. Supple, nontender, no meningeal signs. CARDIOVASCULAR: Regular rate and rhythm without murmurs, gallops, or rubs. RESPIRATORY: Clear to auscultation. Breath sounds equal bilaterally. No wheezes , rales, or rhonchi. GASTROINTESTINAL: Abdomen soft, non-tender, nondistended. No hepato-splenomegaly , or palpable masses. No guarding. MUSCULOSKELETAL: Status post surgery right hip. Dressing CDI. Extremities without clubbing, cyanosis, or edema. No joint tenderness, effusion, or edema noted. No calf tenderness. Negative Homans sign bilaterally. NEUROLOGICAL: Awake and alert. Cranial nerves II through XII intact. Motor and sensory grossly within normal limits. Five out of 5 muscle strength in all muscle groups. Normal speech. Medications and IVs Current Medications Medications (Trade) Dose Ordered Sig/Grover Route Start Time Stop Time Status Last Admin (Lopressor) 25 mg SINTER PRESS OPERATOR PRN PO 03/10/17 05:45 03/13/17 05:44 (Betadine 5% Antisepsis Kit) 1 applic SINTER PRESS OPERATOR PRN EACH NARE 03/10/17 05:45 03/13/17 05:44 03/10/17 06:05 (Chlorhexidine 2% Cloth) 3 pack SINTER PRESS OPERATOR PRN TOPICAL 03/10/17 05:45 03/13/17 05:44 03/10/17 05:40 (NovoLIN R INJ) See Protocol Table ... SINTER PRESS OPERATOR PRN SQ 03/10/17 05:45 03/13/17 05:44 (Betadine 7.5% Scrub) 1 applic ONCE TOPICAL 03/10/17 05:45 03/13/17 05:44 03/10/17 06:00 (Hibiclens 4% Top Soln) 1 applic ONCE TOPICAL 03/10/17 05:45 03/13/17 05:44 Cefazolin Sodium/ Dextrose 50 ml @ 100 mls/hr SINTER PRESS OPERATOR IV 03/10/17 05:45 03/13/17 05:44 03/10/17 06:31 Vancomycin HCl 1000 mg/Sodium Chloride 250 ml @ 250 mls/hr SINTER PRESS OPERATOR IV 03/10/17 05:45 03/13/17 05:44 03/10/17 06:30 (Norvasc) 5 mg BID PO 03/10/17 09:00 03/11/17 20:39 (Lipitor) 20 mg HS PO 03/10/17 21:00 03/11/17 20:39 (Synthroid) 50 mcg DAILY@0600 PO 03/10/17 09:00 03/12/17 05:12 (Protonix) 40 mg DAILY PO 03/10/17 09:00 03/12/17 09:32 (Carafate) 1 gm TID PO 03/10/17 09:00 03/12/17 13:00 (Melatonin) 10 mg HS PRN PO 03/10/17 08:15 (Paxil) 20 mg HS PO 03/10/17 21:00 03/11/17 20:39 Sodium Chloride 1,000 ml @ 42 mls/hr [id number] IV 03/10/17 07:00 03/10/17 22:59 (Lovenox Inj) 30 mg Q24H SQ 03/10/17 21:00 03/11/17 20:38 (Morphine Inj) 3 mg Q3H PRN IV PUSH 03/10/17 07:00 03/11/17 01:54 (Theragran M Tab) 1 tab BID PO 03/11/17 21:00 05/10/17 20:59 03/12/17 09:32 (Zofran Inj) 4 mg Q6H PRN IVP 03/10/17 07:00 03/12/17 15:37 (Colace) 100 mg BID PO 03/11/17 21:00 03/12/17 09:32 (Ambien) 5 mg HS PRN PO 03/10/17 07:00 (Dulcolax Supp) 10 mg DAILY PRN RECTAL 03/10/17 07:00 (Benadryl Inj) 25 mg Q6H PRN IV PUSH 03/10/17 07:00 ([place] 5-325 Mg) 1 tab Q4H PRN PO 03/10/17 11:00 03/10/17 14:30 ([place] 10-325 Mg) 1 tab Q4H PRN PO 03/10/17 11:00 03/12/17 15:38 (Narcan Inj) 0.4 mg UNSCH PRN IV PUSH 03/10/17 11:00 (Lactulose Liq) 30 ml DAILY PRN PO 03/10/17 11:00 03/12/17 11:08 (Duoneb Neb) 1 ampule Q4HR NEB PRN NEB 03/10/17 11:15 (Breo Ellipta 100-25 Inh) 1 puff DAILY INH 03/11/17 09:00 03/12/17 11:07 (Mag-Ox) 400 mg DAILY PO 03/12/17 10:00 03/12/17 11:08 A/P Assessment and Plan 1. Right hip osteoarthritis s/p Right total hip arthroplasty 03/10/17 Continue Pain management, PT, manager of quality. weight bearing as tolerated, okay to maintain dressing unless saturated, continue Lovenox for DVT prophylaxis, Discharge planning to Home with [facility], has been recommended for blood transfusion of one unit of PRBCs, and follow up with Doctor Dubois in 2 weeks. 2. Anemia acute blood loss anemia to receive one unit of PRBCs. 3. Hyperlipidemia to continue Statin 4. Depression/anxiety stable 5. COPD non exacerbated at this time continue Bronchodilator, Mucolytic and incentive spirometry. 6. Hypothyroidism to continue Hormonal replacement. 7. Hypertension controlled. 8. electrolyte derangement replaced and following. 9. Dyspepsia added Carafate and Simethicone. DVT ppx SCD/TEDs. chemical ppx per surgeon Discussed Condition With Patient and nurse. Discharge Planning already recommended by Orthopedic surgery for discharge she will go tomorrow morning as per [facility]. Nicholas Stone MD Mar 12, 2017 16:52
[2017-03-12] MEDS ORDERED: MAGNESIUM HYDROXIDE SUSP 30 ML CUP PO ONE (17:15)
[2017-03-12] MEDS: SIMETHICONE 80 MG CHEWABLE TAB CHEW SCH (18:00)
[2017-03-12] MEDS: PARoxetine HCL 20 MG TAB PO SCH (20:20)
[2017-03-12] MEDS: ATORVASTATIN 20 MG TAB PO SCH (20:20)
[2017-03-12] MEDS: guaiFENesin E.R. 600 MG TAB PO SCH (20:20)
[2017-03-12] MEDS: ENOXAPARIN SODIUM 30 MG/0.3 ML SYRINGE SQ SCH (20:24)
[2017-03-12] MEDS: POLYETHYLENE GLYCOL 17 GM PKG PO SCH (22:20)
[2017-03-13] VITALS: BP 121/68; PULSE 88; RESP 18; TEMP 98.4; O2SAT 94
[2017-03-13] MEDS: ACETAMINOPHEN/HYDROcodone 325 MG/10 MG TAB PO PRN ×5 (01:35→16:13)
[2017-03-13 04:00] VITALS: BP 118/65; PULSE 79; RESP 18; TEMP 98.3; O2SAT 93
[2017-03-13] MEDS: LEVOTHYROXINE SODIUM 50 MCG TAB PO SCH (06:04)
[2017-03-13 08:00] VITALS: BP 107/57; PULSE 80; RESP 18; TEMP 98.9; O2SAT 93
[2017-03-13] MEDS: SUCRALFATE 1 GM TAB PO SCH ×3 (08:00→16:10)
[2017-03-13 08:19] LABS: HEMATOCRIT 24.7 % (35.0-46.0); MEAN CELL VOLUME 89.1 FL (80.0-100.0); MEAN CORPUSCULAR HEMOGLOBIN 30.7 PG (27.0-34.0); MEAN CORPUSCULAR HGB CONC 34.5 % (32.0-36.0); PLATELET COUNT 221 TH/MM3 (150-450); RED BLOOD COUNT 2.77 MIL/MM3 (4.00-5.30); REVIEW FLAG FINAL
--- NOTE | 2017-03-13 08:20 | PD.ORT.PN ---
Subjective Post Op Day #: 3 Subjective Remarks hip pain slightly better. feeling better after transfusion yesterday. no BM yet. Objective Vitals Vital Signs Date Time Temp Pulse Resp B/P (MAP) Pulse Ox O2 Delivery O2 Flow Rate FiO2 03/13/17 04:00 98.3 79 18 118/65 (82) 93 03/13/17 00:00 98.4 88 18 121/68 (85) 94 03/12/17 21:24 16 03/12/17 20:08 99.4 79 18 129/66 (87) 97 03/12/17 17:00 99.6 80 18 115/65 96 03/12/17 16:00 99.6 80 18 115/65 (82) 96 03/12/17 13:55 99.6 82 16 133/60 95 03/12/17 13:39 99.9 81 16 122/58 94 03/12/17 12:00 100.5 78 17 120/55 (76) 95 I/O 03/12/17 03/12/17 03/12/17 03/13/17 03/13/17 03/13/17 07:00 15:00 23:00 07:00 15:00 23:00 Intake Total 360 ml 480 ml 1970 ml 1117 ml Output Total 800 ml Balance 360 ml 480 ml 1970 ml 317 ml Intake Oral 360 ml 480 ml 240 ml 240 ml IV Total 1000 ml 877 ml Packed Cells 400 ml Blood Product IV Normal Saline Flush 330 ml Output Urine Total 800 ml # Voids 2 2 2 # Bowel Movements 0 0 0 0 Result Diagram: 03/12/17 1025 03/12/17 1025 Objective Remarks in bed, nad dressing c/d/i thigh soft neg homans nvi Assessment & Plan Ortho Post Op Day #: 3 Problem List: Assessment and Plan s/p R JETHRO wbat ok to maintain dressing unless saturated lovenox needs to have BM d/c planning home with [facility] and pt - cleared today transfused 1 unit yesterday rx in chart f/up dr. brady 2 weeks Tod Collado Mar 13, 2017 08:20
[2017-03-13] MEDS: MAGNESIUM OXIDE 400 MG TAB PO SCH (09:17)
[2017-03-13] MEDS: guaiFENesin E.R. 600 MG TAB PO SCH (09:17)
[2017-03-13] MEDS: POLYETHYLENE GLYCOL 17 GM PKG PO SCH (09:17)
[2017-03-13] MEDS: MULTIVITAMINS/MINERALS THERAPEUTIC TAB PO SCH (09:17)
[2017-03-13] MEDS: amLODIPine BESYLATE 5 MG TAB PO SCH (09:18)
[2017-03-13] MEDS: SIMETHICONE 80 MG CHEWABLE TAB CHEW SCH ×2 (09:18→11:10)
[2017-03-13] MEDS: PANTOPRAZOLE SOD 40 MG DELAYED RELEASE TAB PO SCH (09:18)
[2017-03-13] MEDS: FLUTICASONE 100 MCG/VILANTEROL 25 MCG INHALER INH SCH (09:19)
[2017-03-13] MEDS: DOCUSATE SODIUM 100 MG CAP PO SCH (09:19)
[2017-03-13 10:35] LABS: BICARBONATE 29.5 MEQ/L (21.0-32.0); MAGNESIUM 2.1 MG/DL (1.5-2.5); POTASSIUM 4.2 MEQ/L (3.5-5.1)
[2017-03-13 12:00] VITALS: BP 111/52; PULSE 71; RESP 18; TEMP 99.4; O2SAT 95
--- NOTE | 2017-03-13 12:52 | HHI.PR ---
Subjective Remarks This is a pleasant 77 y/o Female with Hyperlipidemia, Hypothyroidism, COPD, Anxiety and Depression, brought in by Orthopedic Surgery for Scheduled Right total hip arthroplasty, we were consulted for Medical Management. 03/11: Stable in her bedroom, she has COPD continue Bronchodilator, Mucolytic incentive spirometry. 03/12: Seen in her bedroom, no new complaint, has recommended by Orthopedic Surgery weight bearing as tolerated, okay to maintain dressing unless saturated, continue Lovenox for DVT prophylaxis, Discharge planning to Home with [facility], has been recommended for blood transfusion of one unit of PRBCs, and follow up with Doctor Dubois in 2 weeks. 03/13: Seen in her bedroom, discussed with her Daughter patient weak, Hemoglobin improved to 8.5 she does not have any Cardiac history, recommended to continue Iron supplementation, complaint of some, dyspepsia her Daughter in the room Miss Jessica in the room, discussed about her Mother's recent GI bleed, explained about the risks for new GI bleed in the light of Hip Arthroplasty but the importance of Deep Venous Thrombosis prophylaxis has to be given due to high risk for DVT and Pulmonary Emboli, will need to follow with PCP and Orthopedic Surgery, her Attending physician sent her to Home with [facility]. Objective Vital Signs Date Time Temp Pulse Resp B/P (MAP) Pulse Ox O2 Delivery O2 Flow Rate FiO2 03/13/17 12:00 99.4 71 18 111/52 (71) 95 03/13/17 08:00 98.9 80 18 107/57 (74) 93 03/13/17 04:00 98.3 79 18 118/65 (82) 93 03/13/17 00:00 98.4 88 18 121/68 (85) 94 03/12/17 21:24 16 03/12/17 20:08 99.4 79 18 129/66 (87) 97 03/12/17 17:00 99.6 80 18 115/65 96 03/12/17 16:00 99.6 80 18 115/65 (82) 96 03/12/17 13:55 99.6 82 16 133/60 95 03/12/17 13:39 99.9 81 16 122/58 94 I/O 03/12/17 03/12/17 03/12/17 03/13/17 03/13/17 03/13/17 06:59 14:59 22:59 06:59 14:59 22:59 Intake Total 360 ml 480 ml 1970 ml 1117 ml 50 ml Output Total 800 ml Balance 360 ml 480 ml 1970 ml 317 ml 50 ml Intake Oral 360 ml 480 ml 240 ml 240 ml IV Total 1000 ml 877 ml 50 ml Packed Cells 400 ml Blood Product IV Normal Saline Flush 330 ml Output Urine Total 800 ml # Voids 2 2 2 # Bowel Movements 0 0 0 0 Result Diagram: 03/13/17 0753 03/13/17 0753 Imaging Last Impressions Hip and Pelvis X-Ray 03/10/17 0000 Signed Impressions: Service Date/Time: Friday, March 10, 2017 16:17 - CONCLUSION: Satisfactory postoperative appearance of the right hip status post replacement. No acute bony abnormality. Sonido Galindo MD Hip X-Ray 03/10/17 0000 Signed Impressions: Service Date/Time: Friday, March 10, 2017 07:17 - CONCLUSION: Fluoroscopic images right hip arthroplasty. Ryder Bolden MD Procedures Right hip osteoarthritis s/p Right total hip arthroplasty 03/10/17 Other Results Laboratory Tests Test 03/13/17 07:53 White Blood Count 5.0 TH/MM3 Red Blood Count 2.77 MIL/MM3 Hemoglobin 8.5 GM/DL Hematocrit 24.7 % Mean Corpuscular Volume 89.1 FL Mean Corpuscular Hemoglobin 30.7 PG Mean Corpuscular Hemoglobin Concent 34.5 % Red Cell Distribution Width 15.0 % Platelet Count 221 TH/MM3 Mean Platelet Volume 8.0 FL Blood Urea Nitrogen 5 MG/DL Creatinine 0.43 MG/DL Random Glucose 105 MG/DL Calcium Level 8.0 MG/DL Phosphorus Level 3.0 MG/DL Magnesium Level 2.1 MG/DL Sodium Level 139 MEQ/L Potassium Level 4.2 MEQ/L Chloride Level 105 MEQ/L Carbon Dioxide Level 29.5 MEQ/L Anion Gap 5 MEQ/L Estimat Glomerular Filtration Rate 143 ML/MIN Objective Remarks GENERAL: Well developed patient in no distress. SKIN: No rashes, ecchymoses or lesions. Cool and dry. HEAD: Atraumatic. Normocephalic. No temporal or scalp tenderness. EYES: Pupils equal round and reactive. NECK: Trachea midline. No JVD or lymphadenopathy. CARDIOVASCULAR: Regular rate and rhythm without murmurs. RESPIRATORY: Clear to auscultation. GASTROINTESTINAL: Abdomen soft, non-tender, nondistended. MUSCULOSKELETAL: Status post surgery right hip. Dressing CDI. NEUROLOGICAL: Awake and alert. No focal deficits. Medications and IVs Current Medications Medications (Trade) Dose Ordered Sig/Grover Route Start Time Stop Time Status Last Admin (Norvasc) 5 mg BID PO 03/10/17 09:00 03/13/17 09:18 (Lipitor) 20 mg HS PO 03/10/17 21:00 03/12/17 20:20 (Synthroid) 50 mcg DAILY@0600 PO 03/10/17 09:00 03/13/17 06:04 (Protonix) 40 mg DAILY PO 03/10/17 09:00 03/13/17 09:18 (Melatonin) 10 mg HS PRN PO 03/10/17 08:15 03/12/17 22:15 (Paxil) 20 mg HS PO 03/10/17 21:00 03/12/17 20:20 Sodium Chloride 1,000 ml @ 42 mls/hr [id number] IV 03/10/17 07:00 03/12/17 22:22 (Lovenox Inj) 30 mg Q24H SQ 03/10/17 21:00 03/12/17 20:24 (Morphine Inj) 3 mg Q3H PRN IV PUSH 03/10/17 07:00 03/11/17 01:54 (Theragran M Tab) 1 tab BID PO 03/11/17 21:00 05/10/17 20:59 03/13/17 09:17 (Zofran Inj) 4 mg Q6H PRN IVP 03/10/17 07:00 03/12/17 15:37 (Colace) 100 mg BID PO 03/11/17 21:00 03/13/17 09:19 (Ambien) 5 mg HS PRN PO 03/10/17 07:00 (Dulcolax Supp) 10 mg DAILY PRN RECTAL 03/10/17 07:00 03/13/17 11:10 (Benadryl Inj) 25 mg Q6H PRN IV PUSH 03/10/17 07:00 ([place] 5-325 Mg) 1 tab Q4H PRN PO 03/10/17 11:00 03/10/17 14:30 ([place] 10-325 Mg) 1 tab Q4H PRN PO 03/10/17 11:00 03/13/17 09:18 (Narcan Inj) 0.4 mg UNSCH PRN IV PUSH 03/10/17 11:00 (Lactulose Liq) 30 ml DAILY PRN PO 03/10/17 11:00 03/12/17 11:08 (Duoneb Neb) 1 ampule Q4HR NEB PRN NEB 03/10/17 11:15 (Breo Ellipta 100-25 Inh) 1 puff DAILY INH 03/11/17 09:00 03/13/17 09:19 (Mag-Ox) 400 mg DAILY PO 03/12/17 10:00 03/13/17 09:17 (Mucinex Er) 600 mg BID PO 03/12/17 21:00 03/13/17 09:17 (Carafate) 1 gm ACHS PO 03/12/17 17:00 03/13/17 11:10 (Mylicon Chew) 80 mg TID CHEW 03/12/17 18:00 03/13/17 11:10 (Miralax) 17 gm DAILY PO 03/12/17 19:15 03/13/17 09:17 A/P Assessment and Plan 1. Right hip osteoarthritis s/p Right total hip arthroplasty 03/10/17 Continue Pain management, PT, transportation dispatch manager. weight bearing as tolerated, okay to maintain dressing unless saturated, continue Lovenox for DVT prophylaxis, Discharge planning to Home with [facility], has been recommended for blood transfusion of one unit of PRBCs, and follow up with Doctor Dubois in 2 weeks. 2. Anemia acute blood loss anemia to receive one unit of PRBCs. today Hemoglobin 8.5 3. Hyperlipidemia to continue Statin 4. Depression/anxiety stable 5. COPD non exacerbated at this time continue Bronchodilator, Mucolytic and incentive spirometry. 6. Hypothyroidism to continue Hormonal replacement. 7. Hypertension controlled. 8. electrolyte derangement replaced 9. Dyspepsia added Carafate and Simethicone. 10. Constipation give lactulose and obtain a good BM before discharge. DVT ppx SCD/TEDs. chemical ppx per surgeon Discussed Condition With patient and nurse in the room Miss Hiu also her Daughter Miss Lopez. Discharge Planning already discharged by Orthopedic Surgery. Nicholas Stone MD Mar 13, 2017 12:52
[2017-03-13] MEDS ORDERED: MAGNESIUM HYDROXIDE SUSP 30 ML CUP PO ONE (13:00)
[2017-03-13 16:10] VITALS: BP 113/61
[2017-03-13] MEDS: ENOXAPARIN SODIUM 30 MG/0.3 ML SYRINGE SQ SCH (16:10)
--- NOTE | 2017-03-17 08:03 | MD ---
cc: TRISH GARCIA M.D. ADMISSION DATE: 03/10/2017 DISCHARGE DATE: 03/13/2017 ADMISSION DIAGNOSIS Severe degenerative osteoarthritis right hip. DISCHARGE DIAGNOSIS Severe degenerative osteoarthritis right hip. HISTORY OF PRESENT ILLNESS Mrs. Breen is a 77-year-old female who is a patient of Dr. Trish Garcia at the [facility]. Currently she is being treated for severe and progressive right hip pain. She says the pain has been progressive for greater than 1 year duration and is currently inhibiting her activities of daily living. She states this is a severe constant aching sensation aggravated by weightbearing activities. She has no alleviating factors at this point in time, although in the past she has tried medications, assistive devices, physical therapy, home exercise program. The patient is not overweight. She does have x-ray evidence of severe degenerative osteoarthritis of the right hip. While in the office, the patient was counseled on her diagnosis and treatment options, risks, benefits, indications were all discussed. The patient did elect to proceed with surgical intervention to include a right total hip arthroplasty. Date of surgery 03/10/2017 right total hip arthroplasty anterior approach. Postop after surgery, the patient admitted to [facility] where she received appropriate medical management pain control, DVT prophylaxis as well as physical therapy. DISCHARGE Once being discharged from the hospital, the patient is cleared to go home with home health care and home physical therapy. She is in stable condition. She may weightbear as tolerated with anterior hip precautions. She has been instructed on appropriate wound care management. She has also been provided prescriptions for pain control as well as DVT prophylaxis medication. She has been scheduled a follow-up appointment in approximately 2 weeks from date of surgery. She has asked appropriate questions which have been answered. The patient is cleared for discharge. Dictated by Too Collado PA-C MD HARVEY Urias/ /8:21 AM /8:00 AM
== END 2017-03-13 16:37 | disposition home health service (06) | DRG 470 ==
LOC: HSDI 05:13 → N06B 10:12
PROVIDERS: ADMIT Orthopaedic Surgery Sports Medicine; ATTEND Orthopaedic Surgery Sports Medicine
PROC: 0SR902A Replacement of Right Hip Joint with Metal on Polyethylene Synthetic Substitute, Uncemented, Open Approach (ICD-10-PCS; principal; 2017-03-10 06:55)
PROC: 30233N1 Transfusion of Nonautologous Red Blood Cells into Peripheral Vein, Percutaneous Approach (ICD-10-PCS; 2017-03-12)
DX: M16.11 Unilateral primary osteoarthritis, right hip (principal); J44.9 Chronic obstructive pulmonary disease, unspecified; D62 Acute posthemorrhagic anemia; E87.6 Hypokalemia; I10 Essential (primary) hypertension; E78.5 Hyperlipidemia, unspecified; E03.9 Hypothyroidism, unspecified; M25.751 Osteophyte, right hip; M24.451 Recurrent dislocation, right hip; R10.13 Epigastric pain; K59.00 Constipation, unspecified; F32.9 Major depressive disorder, single episode, unspecified; F41.9 Anxiety disorder, unspecified
CPT/HCPCS: 36430; 73502; 76000; 80048; 83735; 84100; 85027; 86850; 86900; 86901; 86920; 94150; C1776; C9290; J0131; J0690; J1100; J1580; J1650; J2270; J2405; J3370; J7030; J7050; J7120; P9016

== ENCOUNTER → 2017-06-20 | Outpatient (CLI) | payer MEDICARE, BC ==
[~2017-06-20] MED LIST changes: +AMBI10TA PO; -CALC1TAB12 PO; +COMMODE 3-IN-11 MIS; +ENOX30P SQ; +HYDR-3288 PO; +LIPI20TA PO; -OMEG100046 PO; +PARO25CR PO; -SIMV40TA PO
[2017-06-20 10:49] LABS: AUTOMATED NEUTROPHIL # 3.9 TH/MM3 (1.8-7.7); BASOPHIL % 0.5 % (0.0-2.0); EOSINOPHIL # 0.1 TH/MM3 (0-0.4); HEMATOCRIT 30.4 % (35.0-46.0); HEMOGLOBIN 10.3 GM/DL (11.6-15.3); LYMPHOCYTE # 1.5 TH/MM3 (1.0-4.8); MEAN CELL VOLUME 90.1 FL (80.0-100.0); MEAN CORPUSCULAR HEMOGLOBIN 30.5 PG (27.0-34.0); MEAN CORPUSCULAR HGB CONC 33.9 % (32.0-36.0); MEAN PLATELET VOLUME 7.9 FL (7.0-11.0); MONO % 7.2 % (0.0-8.0); MONOCYTE # 0.4 TH/MM3 (0-0.9); NEUT % 66.3 % (16.0-70.0); PLATELET COUNT 292 TH/MM3 (150-450); RED BLOOD COUNT 3.38 MIL/MM3 (4.00-5.30); WHITE BLOOD COUNT 5.8 TH/MM3 (4.0-11.0)
[2017-06-20 10:55] LABS: INTERNATIONAL NORMALIZED RATIO 1.1 RATIO; PROTHROMBIN TIME - PATIENT 11.1 SEC (9.8-11.6)
[2017-06-20 11:04] LABS: BACTERIA, URINE MOD /hpf; BILIRUBIN, URINE NEG (NEG); BLOOD, URINE NEG (NEG); GLUCOSE,URINE NEG (NEG); KETONE, URINE NEG (NEG); MUCUS URINE FEW /lpf (OCC); NITRITE,URINE NEG (NEG); PH, URINE 5.5 (5.0-8.5); SQUAMOUS EPITHELIAL CELL URINE 1 /hpf (0-5); URINE COLOR YELLOW (YELLW/STRAW); URINE LEUKOCYTE ESTERASE MOD (NEG); WHITE BLOOD CELL CLUMPS RARE
[2017-06-20 11:14] LABS: WESTERGREN SEDIMENTATION RATE 51 mm/hr (0-30)
[2017-06-20 11:26] LABS: ALBUMIN 3.5 GM/DL (3.4-5.0); ALT (GPT) 18 U/L (10-53); AST (GOT) 20 U/L (15-37); BICARBONATE 25.3 MEQ/L (21.0-32.0); BLOOD UREA NITROGEN 11 MG/DL (7-18); CALCIUM 8.3 MG/DL (8.5-10.1); CHLORIDE 109 MEQ/L (98-107); CREATININE 0.55 MG/DL (0.50-1.00); GLOMERULAR FILTRATION RATE 108 ML/MIN (>89); GLUCOSE,FASTING 150 MG/DL (74-99); SODIUM (NA) 143 MEQ/L (136-145)
[2017-06-20 11:28] LABS: ALKALINE PHOSPHATASE 74 U/L (45-117); TOTAL BILIRUBIN ADULT 0.2 MG/DL (0.2-1.0); TOTAL PROTEIN 7.2 GM/DL (6.4-8.2)
--- NOTE | 2017-06-20 11:50 | RADRPT ---
EXAM DATE/TIME: 06/20/2017 11:18 [place] COMPARISON: CHEST PA & LAT, February 17, 2017, 11:52. INDICATIONS : Evaluate for pneumothorax, pneumonia, or communicable disease. Pre op for hip replacement. MEDICAL HISTORY : Chronic obstructive pulmonary disease. Hypertension SURGICAL HISTORY : None. ENCOUNTER: Initial ACUITY: 1 day PAIN SCORE: 0/10 LOCATION: Bilateral chest FINDINGS: PA and lateral views of the chest demonstrate the lungs to be symmetrically aerated without evidence of mass, infiltrate or effusion. The cardiomediastinal contours are unremarkable. Osseous structure s are intact. CONCLUSION: Hyperinflation without infiltrate. Ryder Bolden MD on June 20, 2017 at 11:47 Board Certified Radiologist. This report was verified electronically.
--- NOTE | 2017-06-20 20:01 | EKG ---
Date Performed: 06/20/2017 Time Performed: 10:41:44 PTAGE: 77 years EKG: Sinus rhythm Since previous tracing, no significant change noted NORMAL ECG PREVIOUS TRACING : 02/17/2017 09.52 DOCTOR: Damion Corona Interpretating Date/Time 06/20/2017 19:56:33
== END ==
LOC: CPRE 10:05
PROVIDERS: ATTEND Orthopaedic Surgery Sports Medicine
DX: Z01.810 Encounter for preprocedural cardiovascular examination (principal); Z01.811 Encounter for preprocedural respiratory examination; Z01.818 Encounter for other preprocedural examination; M25.50 Pain in unspecified joint; M16.12 Unilateral primary osteoarthritis, left hip; Z96.60 Presence of unspecified orthopedic joint implant; Z79.01 Long term (current) use of anticoagulants; N39.0 Urinary tract infection, site not specified; B96.1 Klebsiella pneumoniae [K. pneumoniae] as the cause of diseases classified elsewhere
CPT/HCPCS: 36415; 71046; 80053; 81001; 85025; 85610; 85652; 85730; 87077; 87086; 87186; 93005

== ENCOUNTER 2017-07-07 07:05 | Inpatient (IN) | payer MEDICARE, BC ==
[~2017-07-07] VITALS: Ht 162.6 cm; Wt 49.9 kg
[~2017-07-07 07:05] MED LIST changes: -ENOX30P SQ; -HYDR-3288 PO; -OCUVTAB4 PO; -PAXI30TA7 PO
[2017-07-07] MEDS ORDERED: LACTATED RINGER'S 1000 ML IV PRN (07:45)
[2017-07-07] MEDS ORDERED: CHLORHEXIDINE GLUCONATE 2 % 1 PACK (2 CLOTHS) TOPICAL PRN (07:45)
[2017-07-07] MEDS ORDERED: SODIUM CHLORID 0.9% 500 ML IV PRN (07:45)
[2017-07-07] MEDS ORDERED: POVIDONE IODINE 5% (ANTISEPSIS KIT) 4 APPLICATIONS EACH NARE PRN (07:45)
[2017-07-07] MEDS ORDERED: CEFAZOLIN INJ 2,000 MG in SODIUM CHLORIDE 0.9% INJ 100 ML IV SCH (07:45)
[2017-07-07] MEDS ORDERED: POVIDONE IODINE 7.5% SCRUB 118 ML BOTTLE TOPICAL SCH (07:45)
[2017-07-07] MEDS ORDERED: CHLORHEXIDINE GLUCONATE 4% SOLN 120 ML BTL TOPICAL SCH (07:45)
[2017-07-07] MEDS ORDERED: VANCOMYCIN 1000 MG/NS 250 ML (for <70 kg) IV SCH ×2 (07:45)
[2017-07-07] MEDS ORDERED: DEXAMETHASONE SOD PHOS PF 10 MG/ML VIAL IV PUSH ONE (07:45)
[2017-07-07] MEDS ORDERED: METOPROLOL TARTRATE 25 MG TAB PO PRN (07:45)
[2017-07-07] MEDS ORDERED: HYDR-3288 PO (08:57)
[2017-07-07] MEDS ORDERED: ASPI81CH6 CHEW (08:59)
[2017-07-07] MEDS ORDERED: ENOX30P SQ (08:59)
[2017-07-07] MEDS ORDERED: ZOLPIDEM TARTRATE 5 MG TAB PO PRN (09:00)
[2017-07-07] MEDS ORDERED: Post-op Orders (for Pharmacy) XX ONE (09:00)
[2017-07-07] MEDS ORDERED: ACETAMINOPHEN/HYDROcodone 325 MG/7.5 MG TAB PO PRN (09:00)
[2017-07-07] MEDS ORDERED: diphenhydrAMINE HCL 50 MG/ML VIAL IV PUSH PRN (09:00)
[2017-07-07] MEDS ORDERED: EXPAREL PERI-ARTICULAR INJECTION (TOTAL VOL. 60 ML) P-ARTICULR SCH ×2 (09:00)
[2017-07-07] MEDS ORDERED: TRANEXAMIC ACID INJ 750 MG in SODIUM CHLORIDE 0.9% INJ 100 ML IV SCH (09:00)
[2017-07-07] MEDS ORDERED: ZOLPIDEM TARTRATE 10 MG TAB PO PRN (09:00)
[2017-07-07] MEDS: amLODIPine BESYLATE 5 MG TAB PO SCH ×2 (09:00→22:26)
[2017-07-07] MEDS ORDERED: TRANEXAMIC PERI-ARTICULAR 3,000 MG/NS 100 ML P-ARTICULR SCH ×2 (09:00)
[2017-07-07] MEDS ORDERED: MELATONIN 5 MG TAB PO PRN (09:15)
[2017-07-07] MEDS ORDERED: DEXMEDETOMIDINE HCL 200 MCG/2 ML VIAL ONE (09:21)
[2017-07-07] MEDS ORDERED: ACETAMINOPHEN 1000 MG/100 ML 100 ML IV ONE (09:21)
[2017-07-07] MEDS ORDERED: KETAMINE HCL 50 MG/5 ML SYRINGE ONE (09:22)
[2017-07-07] MEDS: LEVOTHYROXINE SODIUM 50 MCG TAB PO SCH (09:30)
[2017-07-07] MEDS: PANTOPRAZOLE SOD 40 MG DELAYED RELEASE TAB PO SCH ×2 (09:30→22:27)
[2017-07-07] MEDS: PARoxetine 25 MG CONTROLLED RELEASE TAB PO SCH (09:30)
[2017-07-07] MEDS: SUCRALFATE 1 GM TAB PO SCH ×2 (09:30→21:00)
[2017-07-07] MEDS ORDERED: GENTAMICIN SULFATE 80 MG/2 ML VIAL ONE (09:37)
--- NOTE | 2017-07-07 09:49 | HHI.HP ---
History of Present Illness Service MEDICINE CONSULT Primary Care Physician Oneil Britton MD Admission Diagnosis Diagnoses: History of Present Illness 77 Y CF. 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 WORSENING L HIP PAIN, SEEN IN MY OFFICE FOR COPD AND ROUTINE HEALTH MAINTENANCE. PT SEEN ALSO LAST WEEK FOR PREOPERATIVE CLEARANCE. SHE WAS FOUND ON ROUTINE PREOP LABS TO HAVE KLEBSIELLA UTI AND HYPOKALEMIA. UTI TREATED AND PT IS ASYMPTOMATIC. HYPOKALEMIA REPLACED WITH A TWO DAY DOSE OF KCL BY MOUTH. PT SEEN WITH HER DAUGHTER WHOM IS VERY HELPFUL. PT EXCITED TO HAVE SURGERY TO HELP WITH PAIN AND TO BE ABLE TO RESUME HER USUAL ADLS. SHE REQUESTS HOPEFULLY TO GO HOME WITH [facility] AFTER THE SURGERY AND TO AVOID SNF. DISCUSSED WITH NURSING. Review of Systems Constitutional: DENIES: Fever, Chills, Change in appetite Endocrine: DENIES: Heat/cold intolerance Eyes: DENIES: Blurred vision, Eye pain Ears, nose, mouth, throat: DENIES: Tinnitus, Hearing loss, Vertigo, Nasal discharge, Oral lesions, Throat pain, Hoarseness, Ear Pain, Running Nose, Epistaxis, Sinus Pain, Toothache, Odynophagia Respiratory: DENIES: Apneas, Cough, Snoring, Wheezing, Hemoptysis, Sputum production, Shortness of breath Cardiovascular: DENIES: Chest pain, Palpitations, Syncope, Dyspnea on Exertion , PND, Lower Extremity Edema, Orthopnea, Claudication Gastrointestinal: DENIES: Abdominal pain, Black stools, Bloody stools, Constipation, Diarrhea, Nausea, Vomiting, Difficulty Swallowing, Anorexia Genitourinary: DENIES: Abnormal vaginal bleeding, Dysmenorrhea, Dyspareunia, Sexual dysfunction, Urinary frequency, Urinary incontinence, Urgency, Hematuria , Dysuria, Nocturia, Vaginal discharge Musculoskeletal: COMPLAINS OF: Joint pain, Muscle aches, Stiffness, Joint Swelling, Back pain, Neck pain Integumentary: DENIES: Abnormal pigmentation, Pruritus, Rash, Nail changes, Breast masses, Breast skin changes, Nipple discharge Hematologic/lymphatic: DENIES: Bruising, Lymphadenopathy Immunologic/allergic: DENIES: Eczema, Urticaria Neurologic: DENIES: Abnormal gait, Headache, Localized weakness, Paresthesias, Seizures, Speech Problems, Tremor, Poor Balance Psychiatric: DENIES: Anxiety, Confusion, Mood changes, Depression, Hallucinations, Agitation, Suicidal Ideation, Homicidal Ideation, Delusions Except as stated in HPI: all other systems reviewed are Neg Past Family Social History Allergies: Coded Allergies: NSAIDS (Non-Steroidal Anti-Inflamma (Verified Adverse Reaction, Severe, Ulcers, 07/07/17) GI BLEED IN OCTOBER. WAS TOLD NO NSAIDS DUE TO BLEEDING. NOT ALLERGIC Past Medical History COPD PUD HTN UTI LOW K Past Surgical History R JETHRO Reported Medications Current Medications Medications (Trade) Dose Ordered Sig/Grover Route Start Time Stop Time Status Last Admin Lactated Ringer's 1,000 ml @ 30 mls/hr Q24H PRN IV 07/07/17 07:45 07/10/17 07:44 07/07/17 07:51 Sodium Chloride 500 ml @ 30 mls/hr [id number] PRN IV 07/07/17 07:45 07/10/17 07:44 (Lopressor) 25 mg RAIL GANG SUPERVISOR PRN PO 07/07/17 07:45 07/10/17 07:44 (Betadine 5% Antisepsis Kit) 1 applic RAIL GANG SUPERVISOR PRN EACH NARE 07/07/17 07:45 07/10/17 07:44 07/07/17 07:51 (Chlorhexidine 2% Cloth) 3 pack RAIL GANG SUPERVISOR PRN TOPICAL 07/07/17 07:45 07/10/17 07:44 07/07/17 07:51 (Betadine 7.5% Scrub) 1 applic ONCE TOPICAL 07/07/17 07:45 07/10/17 07:44 07/07/17 07:50 (Hibiclens 4% Top Soln) 1 applic ONCE TOPICAL 07/07/17 07:45 07/10/17 07:44 07/07/17 07:50 Cefazolin Sodium 2000 mg/Sodium Chloride 120 ml @ 240 mls/hr RAIL GANG SUPERVISOR IV 07/07/17 07:45 07/10/17 07:44 07/07/17 10:40 Vancomycin HCl 1000 mg/Sodium Chloride 250 ml @ 250 mls/hr RAIL GANG SUPERVISOR IV 07/07/17 07:45 07/10/17 07:44 07/07/17 10:35 Tranexamic Acid 750 mg/Sodium Chloride 107.5 ml @ 200 mls/hr ONCE IV 07/07/17 09:00 07/07/17 15:00 07/07/17 10:40 Bupivacaine Liposome 20 ml/ Sodium Chloride 60 ml @ 120 mls/hr ONCE P-ARTICULR 07/07/17 09:00 07/07/17 15:00 07/07/17 11:12 Tranexamic Acid 3000 mg/Sodium Chloride 130 ml @ 260 mls/hr ONCE P-ARTICULR 07/07/17 09:00 07/07/17 15:00 07/07/17 11:12 (Norvasc) 5 mg BID PO 07/07/17 09:00 (Lipitor) 20 mg HS PO 07/07/17 21:00 (Synthroid) 50 mcg DAILY@0600 PO 07/07/17 09:30 (Protonix) 40 mg BID PO 07/07/17 09:30 (Paxil Cr) 25 mg DAILY PO 07/07/17 09:30 (Carafate) 1 gm BID PO 07/07/17 09:30 (Ambien) 10 mg HS PRN PO 07/07/17 09:00 (Melatonin) 10 mg HS PRN PO 07/07/17 09:15 Sodium Chloride 1,000 ml @ 100 mls/hr Q10H IV 07/07/17 09:00 Cefazolin Sodium 1000 mg/Sodium Chloride 100 ml @ 200 mls/hr Q6H IV 07/07/17 17:00 07/08/17 05:29 (Morphine Inj) 3 mg Q3H PRN IV PUSH 07/07/17 09:00 ([place] 7.5-325 Mg) 1 tab Q4H PRN PO 07/07/17 09:00 ([place] 7.5-325 Mg) 2 tab Q4H PRN PO 07/07/17 09:00 (Theragran M Tab) 1 tab BID PO 07/08/17 21:00 09/06/17 20:59 (Zofran Inj) 4 mg Q6H PRN IVP 07/07/17 09:00 (Colace) 100 mg BID PO 07/08/17 21:00 (Benadryl Inj) 25 mg Q6H PRN IV PUSH 07/07/17 09:00 (Lovenox Inj) 30 mg Q24H SQ 07/08/17 10:30 UNV Miscellaneous Information ALL NURSING DEPARTME... UNSCH PRN .XX 07/07/17 12:32 07/08/17 12:31 Family History NC Social History NO E/T/D, RETIRED Physical Exam Vital Signs Vital Signs Date Time Temp Pulse Resp B/P (MAP) Pulse Ox O2 Delivery O2 Flow Rate FiO2 07/07/17 07:44 97.5 67 20 141/66 (91) 100 Physical Exam GENERAL: This is a well-nourished, well-developed patient, in no apparent distress. SKIN: No rashes, ecchymoses or lesions. Cool and dry. HEAD: Atraumatic. Normocephalic. No temporal or scalp tenderness. EYES: Pupils equal round and reactive. Extraocular motions intact. No scleral icterus. No injection or drainage. ENT: Nose without bleeding, purulent drainage or septal hematoma. Throat without erythema, tonsillar hypertrophy or exudate. Uvula midline. Airway patent. NECK: Trachea midline. No JVD or lymphadenopathy. Supple, nontender, no meningeal signs. CARDIOVASCULAR: Regular rate and rhythm without murmurs, gallops, or rubs. RESPIRATORY: Clear to auscultation. Breath sounds equal bilaterally. No wheezes , rales, or rhonchi. GASTROINTESTINAL: Abdomen soft, non-tender, nondistended. No hepato-splenomegaly , or palpable masses. No guarding. MUSCULOSKELETAL: Extremities without clubbing, cyanosis, or edema. No joint tenderness, effusion, or edema noted. No calf tenderness. Negative Homans sign bilaterally. NEUROLOGICAL: Awake and alert. Cranial nerves II through XII intact. Motor and sensory grossly within normal limits. Five out of 5 muscle strength in all muscle groups. Normal speech. Imaging Last 72 hours Impressions Hip X-Ray 07/07/17 0000 Signed Impressions: Service Date/Time: Friday, July 07, 2017 11:52 - CONCLUSION: Successful placement of a bipolar prosthesis. MD Aliya Fischeri VTE Risk Assessment Caprini VTE Risk Assessment: Mod/High Risk (score >= 2) Caprini Risk Assessment Model Point Value = 1 Point Value = 2 Point Value = 3 Point Value = 5 Age 41-60 Minor surgery BMI > 25 kg/m2 Swollen legs Varicose veins or History of unexplained or recurrent spontaneous Oral contraceptives or hormone replacement Sepsis (< 1 month) Serious lung disease, including pneumonia (< 1 month) Abnormal pulmonary function Acute myocardial infarction Congestive heart failure (< 1 month) History of inflammatory bowel disease Medical patient at bed rest Age 61-74 Arthroscopic surgery Major open surgery (> 45 min) Laparoscopic surgery (> 45 min) Malignancy Confined to bed (> 72 hours) Immobilizing plaster cast Central venous access Age >= 75 History of VTE Family history of VTE Factor V Leiden Prothrombin [id number] Lupus anticoagulant Anticardiolipin antibodies Elevated serum homocysteine Heparin-induced thrombocytopenia Other congenital or acquired thrombophilia Stroke (< 1 month) Elective arthroplasty Hip, pelvis, or leg fracture Acute spinal cord injury (< 1 month) Prophylaxis Regimen Total Risk Factor Score Risk Level Prophylaxis Regimen 0-1 Low Early ambulation 2 Moderate Order ONE of the following: *Sequential Compression Device (SCD) *Heparin 5000 units SQ BID 3-4 Higher Order ONE of the following medications: *Heparin 5000 units SQ TID *Enoxaparin/Lovenox 40 mg SQ daily (WT < 150 kg, CrCl > 30 mL/min) *Enoxaparin/Lovenox 30 mg SQ daily (WT < 150 kg, CrCl > 10-29 mL/min) *Enoxaparin/Lovenox 30 mg SQ BID (WT < 150 kg, CrCl > 30 mL/min) AND/OR *Sequential Compression Device (SCD) 5 or more Highest Order ONE of the following medications: *Heparin 5000 units SQ TID (Preferred with Epidurals) *Enoxaparin/Lovenox 40 mg SQ daily (WT < 150 kg, CrCl > 30 mL/min) *Enoxaparin/Lovenox 30 mg SQ daily (WT < 150 kg, CrCl > 10-29 mL/min) *Enoxaparin/Lovenox 30 mg SQ BID (WT < 150 kg, CrCl > 30 mL/min) AND *Sequential Compression Device (SCD) Assessment and Plan Assessment and Plan A/P- -L HIP OA: IN PREOP, MEDICALLY CLEARED FOR SURGERY -HYPOKALEMIA: REPLACED LAST WEEK -UTI, KLEBSIELLA: TREATED PREOP, FINISHED ABX. -HTN: MONITOR BP'S -COPD: EARLY AMBULATION AND IS USAGE -PUD -HYPERGLYCEMIA -IRON DEFICIENCY ANEMIA -ESOPHAGITIS -HYPOTHYROID -GI PROPHYLAXIS: PPI -DVT PROPHYLAXIS: COAGS PER DR GARCIA FOR NOW THANK YOU FOR THE CONSULT, WILL FOLLOW DAILY AND CONTINUE TO SEE OUTPATIENT. Oneil Britton MD Jul 07, 2017 09:49
[2017-07-07] MEDS ORDERED: ePHEDrine/NS 25 MG/5 ML SYRINGE IV ONE (12:00)
[2017-07-07] MEDS ORDERED: ROCURONIUM INJ 50 MG/5 ML SYRINGE IV PUSH ONE (12:00)
[2017-07-07] MEDS ORDERED: PROPOFOL 200 MG/20 ML AMP IV ONE (12:00)
[2017-07-07] MEDS ORDERED: LIDOCAINE HCL 1% PF 5 ML SYRINGE OTHER ONE (12:00)
[2017-07-07] MEDS ORDERED: ONDANSETRON HCL 4 MG/2 ML VIAL IV ONE (12:00)
[2017-07-07] MEDS ORDERED: DO NOT ADM ANY ANTICOAGULANT DRUGS PRN (12:32)
--- NOTE | 2017-07-07 12:34 | MP ---
cc: Tod Dubois MD DATE OF OPERATION: 07/07/2017 PREOPERATIVE DIAGNOSIS: Left hip osteoarthritis. POSTOPERATIVE DIAGNOSIS: Left hip osteoarthritis. PROCEDURE: Left total hip arthroplasty. SURGEON: Tod Dubois MD STUDENT ACTIVITIES DIRECTOR: Too Collado PA-C ANESTHESIA: General. ESTIMATED BLOOD LOSS: 300 mL COMPLICATIONS: None. IMPLANTS USED: DePuy Corail size 13 press-fit standard offset femoral stem, size 50 solid Horatio Gription cup, size 32 mm highly cross-linked neutral polyethylene liner, size 32 mm cobalt chrome head, +9 neck. JUSTIFICATION: This patient is a 77-year-old female with history of severe osteoarthritis involving the left hip. She has severe disabling pain with standing, walking, ambulation, weightbearing activities and even severe pain at rest. She has failed greater than 3 months of nonoperative conservative treatment to include medication therapy, injections, ambulatory assistive aids, home exercise program, activity modification. The patient is not overweight. X-rays of the left hip reveal severe end-stage osteoarthritis, [id number] joint space narrowing, subchondral sclerosis, subchondral cyst, osteophyte formation with subluxation. The patient was counseled on risks, benefits and alternatives to a total hip arthroplasty. The risks were discussed, which include, but not limited to anesthesia, bleeding, infection, damage to nerves and blood vessels, pain, stiffness, fracture, dislocation, leg length discrepancies, blood clots, pulmonary embolism and even . The patient's pain is severe. She favors the benefits over the risks. She did wish to proceed with surgery. PROCEDURE IN DETAIL: Written consent was obtained. The patient was identified by name, taken to the operating room and placed supine on the operating table. General anesthesia was administered, as well as 2 grams of IV Ancef and 1 gram of IV vancomycin. Left and right feet were placed in well-padded traction boots. The left hip and left lower extremity prepped and draped using isopropyl alcohol, Hibiclens solution and ChloraPrep solution. After timeout was performed, a longitudinal incision made over the anterolateral aspect of the left hip. The fascial layer was incised. Dissection carried over tensor fascia charline beneath the rectus femoris to allow exposure of the anterior hip capsule. Capsulotomy incision was performed. An oscillating saw was used to perform a femoral neck cut. The osteoarthritic femoral head and neck component was removed. A 10 blade scalpel was used to excise the labrum. Sequential reaming began at size 44 mm and carried through to a size 50. A solid Horatio Gription cup was implanted in approximately 45 degrees of abduction, 10 degrees anteversion. There was good purchase and fixation of the insertion of the cup. A screw hole eliminator was placed, followed by a neutral liner. The liner was then impacted in place and tested for stability. Attention was turned to the femur where a box cutting osteotome used to gain entrance into the intramedullary canal of the femur. This was followed by canal finder and sequential broaching up to size 13. Calcar planer was used to plane the calcar. Trial head and neck combinations were evaluated and final components implanted. With the current components, the leg achieve external rotation of 70 degrees and extension all the way down to the ground without evidence of anterior instability or impingement. Fluoroscopic imaging showed appropriate implantation of components. Surgical wound was thoroughly irrigated with sterile saline, pulse lavage, antibiotic impregnated solution. The arthrotomy incision was closed with #1 Vicryl suture, subcutaneous closed with 2-0 Vicryl suture. Skin was closed with Dermabond. Sterile dressings applied. The patient tolerated well. No intraoperative complications noted. Too Collado, physician assistant director of nursing, certified, present for entire procedure to include patient positioning and the procedure itself. The medical necessity of a physician assistant director of nursing was indicated in this case due to complexity of the procedure. He assisted with appropriate manipulation of the leg and also retraction of muscle, tendon, bone and neurovascular structures. He assisted with preparation of bone and also implantation of the prosthetic replacement. MD HARVEY Urias/MARTHA , 12:11 PM , 12:34 PM
[2017-07-07] MEDS ORDERED: MIDAZOLAM HCL 2 MG/2 ML VIAL ONE (12:36)
--- NOTE | 2017-07-07 12:43 | RADRPT ---
EXAM DATE/TIME: 07/07/2017 11:52 [facility] COMPARISON: No previous studies available for comparison. INDICATIONS : Left anterior hip replacement. MEDICAL HISTORY : Hypertension. Chronic obstructive pulmonary disease. Osteoarthritis. SURGICAL HISTORY : Hysterectomy. Right total hip replacement. ENCOUNTER: Initial ACUITY: 1 day PAIN SCORE: Non-responsive. LOCATION: Left anterior hip. FINDINGS: 2 images from the OR have been submitted. There is a bipolar hip prosthesis in place. This appears we ll placed. CONCLUSION: Successful placement of a bipolar prosthesis. Hakan Brandt MD on July 07, 2017 at 12:41 Board Certified Radiologist. This report was verified electronically.
[2017-07-07] MEDS ORDERED: *morphine SULFATE 4 MG/ML PERIprocedure ONLY ONE ×3 (12:44→13:20)
[2017-07-07] MEDS: SODIUM CHLOR 0.9% 1000 ML INJ 1,000 ML IV SCH ×2 (13:00→18:26)
--- NOTE | 2017-07-07 14:25 | RADRPT ---
EXAM DATE/TIME: 07/07/2017 13:55 [facility] COMPARISON: No previous studies available for comparison. INDICATIONS : Post-op total left hip arthroplasty. MEDICAL HISTORY : Hypertension. SURGICAL HISTORY : Hysterectomy. ORIF right knee fracture. ORIF right wrist fracture. ENCOUNTER: Subsequent ACUITY: 1 day PAIN SCORE: 8/10 LOCATION: Left hip. FINDINGS: Left total hip arthroplasty has been performed. The prosthesis appears to be in good position. No fra cture or dislocation is noted. Old right total hip arthroplasty is noted. Degenerative changes are no kathya involving the lower lumbar spine. CONCLUSION: Status post left total hip arthroplasty which is adequate in position. Degenerative c hanges involving lower lumbar spine. Thomas Wright MD on July 07, 2017 at 14:21 Board Certified Radiologist. This report was verified electronically.
[2017-07-07 17:01] VITALS: BP 134/62; PULSE 87; RESP 16; TEMP 98.1; O2SAT 99
[2017-07-07] MEDS: ONDANSETRON HCL 4 MG/2 ML VIAL IVP PRN (18:21)
[2017-07-07] MEDS: ACETAMINOPHEN/HYDROcodone 325 MG/7.5 MG TAB PO PRN ×2 (18:23→22:27)
[2017-07-07 20:00] VITALS: BP 134/62; PULSE 91; RESP 18; TEMP 98.1; O2SAT 99
[2017-07-07] MEDS: ATORVASTATIN 20 MG TAB PO SCH (22:26)
[2017-07-08] VITALS (11 sets, daily range): BP systolic 108–145; BP diastolic 55–75; PULSE 77–86; RESP 16–18; TEMP 97.8–99.8; O2SAT 92–97
[2017-07-08] MEDS: ACETAMINOPHEN/HYDROcodone 325 MG/7.5 MG TAB PO PRN ×5 (04:01→20:55)
[2017-07-08] MEDS: SODIUM CHLOR 0.9% 1000 ML INJ 1,000 ML IV SCH ×3 (05:00→21:20)
[2017-07-08] MEDS: LEVOTHYROXINE SODIUM 50 MCG TAB PO SCH (05:57)
[2017-07-08 06:02] LABS: HEMATOCRIT 21.2 % (35.0-46.0); HEMOGLOBIN 7.2 GM/DL (11.6-15.3); MEAN CELL VOLUME 90.2 FL (80.0-100.0); MEAN CORPUSCULAR HEMOGLOBIN 30.7 PG (27.0-34.0); MEAN CORPUSCULAR HGB CONC 34.1 % (32.0-36.0); MEAN PLATELET VOLUME 8.3 FL (7.0-11.0); PLATELET COUNT 259 TH/MM3 (150-450); RED BLOOD COUNT 2.35 MIL/MM3 (4.00-5.30); RED CELL DISTRIBUTION WIDTH 15.1 % (11.6-17.2); WHITE BLOOD COUNT 6.3 TH/MM3 (4.0-11.0)
--- NOTE | 2017-07-08 08:12 | PD.ORT.PN ---
Subjective Post Op Day #: 1 Subjective Remarks pain tolerable. Objective Vitals Vital Signs Date Time Temp Pulse Resp B/P (MAP) Pulse Ox O2 Delivery O2 Flow Rate FiO2 07/08/17 05:01 18 07/08/17 04:00 98.5 84 18 114/57 (76) 95 07/08/17 00:00 07/08/17 00:00 98.3 83 18 126/60 (82) 97 07/07/17 23:07 Room Air 07/07/17 20:00 98.1 91 18 134/62 (86) 99 07/07/17 17:01 98.1 87 16 134/62 (86) 99 07/07/17 16:30 81 15 132/65 (87) 99 Nasal Cannula 2 07/07/17 15:30 77 16 125/62 (83) 99 Nasal Cannula 2 07/07/17 14:30 73 14 128/60 (82) 100 Nasal Cannula 2 07/07/17 13:30 97.9 78 16 110/53 (72) 99 Nasal Cannula 2 07/07/17 13:15 80 20 127/63 (84) 97 Nasal Cannula 2 07/07/17 13:00 76 18 123/67 (85) 96 Nasal Cannula 2 07/07/17 12:45 78 20 113/53 (73) 99 Nasal Cannula 2 07/07/17 12:30 96 22 129/53 (78) 94 Nasal Cannula 2 07/07/17 12:29 97.8 90 16 106/52 (70) 95 Nasal Cannula 2 I/O 07/07/17 07/07/17 07/07/17 07/08/17 07/08/17 07/08/17 07:00 15:00 23:00 07:00 15:00 23:00 Intake Total 1800 ml 645 ml 600 ml Output Total 400 ml 275 ml Balance 1400 ml 370 ml 600 ml Intake Oral 225 ml 500 ml IV Total 420 ml 100 ml Other 1800 ml Output Urine Total 200 ml 275 ml Estimated Blood Loss 200 ml # Voids 1 2 6 # Bowel Movements 0 Result Diagram: 07/08/17 0530 Imaging Last 24 hours Impressions Hip and Pelvis X-Ray 07/07/17 0855 Signed Impressions: Service Date/Time: Friday, July 07, 2017 13:55 - CONCLUSION: Status post left total hip arthroplasty which is adequate in position. Degenerative changes involving lower lumbar spine. Thomas Wright MD Objective Remarks in bed, nad dressing c/d/i thigh soft neg homans nvi Assessment & Plan Ortho Post Op Day #: 1 Problem List: Assessment and Plan s/p L JETHRO wbat ok to maintain dressing unless saturated lovenox, d/c on asa 81 anemia - transfuse 2 units d/c planning home with [facility] and pt - likely tomorrow f/up dr. brady 2 weeks Tod Collado Jul 08, 2017 08:12
--- NOTE | 2017-07-08 08:13 | HHI.DCPOC ---
Discharge Care Plan Diagnosis: (1) Primary localized osteoarthrosis, pelvic region and thigh Your Health Problems Are: Difficulty with ADL Goals to Promote Your Health * To prevent worsening of your condition and complications * To maintain your health at the optimal level Directions to Meet Your Goals Take your medications as prescribed Follow your dietary instruction Follow activity as directed Keep your appointments as scheduled Take your immunizations and boosters as scheduled If your symptoms worsen call your PCP, if no PCP go to Urgent Care Center or Emergency Room Smoking is Dangerous to Your Health. Avoid second hand smoke Call the 24-hour hour crisis hotline for domestic abuse at Tod Collado Jul 08, 2017 08:13
--- NOTE | 2017-07-08 08:14 | HHI.FF ---
Face to Face Verification Diagnosis: (1) Primary localized osteoarthrosis, pelvic region and thigh Physical Therapy Gait training, Safety evaluation, Transfer training, bed to chair Hip: Total hip, Protocol: Left Left LE Weight Bearing: WB as tolerated Nursing RN: 3 days/week x 2 weeks Nursing: Dressing changes Dressing Changes: Daily dressing change I have seen patient Maggi Breen on 07/08/17. My clinical findings support the need for the requested home health care services because: Limited ability to care for self High risk of falls I certify that my clinical findings support that this patient is homebound because: Post-op weakness Unsteady gait/balance Tod Collado Jul 08, 2017 08:14
[2017-07-08] MEDS: amLODIPine BESYLATE 5 MG TAB PO SCH ×2 (08:18→20:12)
[2017-07-08] MEDS: PANTOPRAZOLE SOD 40 MG DELAYED RELEASE TAB PO SCH ×2 (08:18→20:12)
[2017-07-08] MEDS: SUCRALFATE 1 GM TAB PO SCH ×2 (08:18→20:12)
[2017-07-08] MEDS: PARoxetine 25 MG CONTROLLED RELEASE TAB PO SCH (08:19)
[2017-07-08] MEDS: ONDANSETRON HCL 4 MG/2 ML VIAL IVP PRN ×2 (09:31→17:03)
[2017-07-08] MEDS: MORPHINE SULFATE 4 MG/ML INJ IV PUSH PRN ×2 (09:36→17:52)
--- NOTE | 2017-07-08 10:30 | HHI.FPPN ---
Subjective Remarks pt reports she is to get transfused reports 10/07 hip pain d/w RN Objective Vitals Vital Signs Date Time Temp Pulse Resp B/P (MAP) Pulse Ox O2 Delivery O2 Flow Rate FiO2 07/08/17 08:55 Room Air 07/08/17 08:00 98.7 83 18 123/59 (80) 96 07/08/17 05:01 18 07/08/17 04:00 98.5 84 18 114/57 (76) 95 07/08/17 00:00 07/08/17 00:00 98.3 83 18 126/60 (82) 97 07/07/17 23:07 Room Air 07/07/17 20:00 98.1 91 18 134/62 (86) 99 07/07/17 17:01 98.1 87 16 134/62 (86) 99 07/07/17 16:30 81 15 132/65 (87) 99 Nasal Cannula 2 07/07/17 15:30 77 16 125/62 (83) 99 Nasal Cannula 2 07/07/17 14:30 73 14 128/60 (82) 100 Nasal Cannula 2 07/07/17 13:30 97.9 78 16 110/53 (72) 99 Nasal Cannula 2 07/07/17 13:15 80 20 127/63 (84) 97 Nasal Cannula 2 07/07/17 13:00 76 18 123/67 (85) 96 Nasal Cannula 2 07/07/17 12:45 78 20 113/53 (73) 99 Nasal Cannula 2 07/07/17 12:30 96 22 129/53 (78) 94 Nasal Cannula 2 07/07/17 12:29 97.8 90 16 106/52 (70) 95 Nasal Cannula 2 I/O 07/07/17 07/07/17 07/07/17 07/08/17 07/08/17 07/08/17 07:00 15:00 23:00 07:00 15:00 23:00 Intake Total 1800 ml 645 ml 600 ml Output Total 400 ml 275 ml Balance 1400 ml 370 ml 600 ml Intake Oral 225 ml 500 ml IV Total 420 ml 100 ml Other 1800 ml Output Urine Total 200 ml 275 ml Estimated Blood Loss 200 ml # Voids 1 2 6 # Bowel Movements 0 Result Diagram: 07/08/17 0530 Objective Remarks GENERAL: SKIN: Warm and dry. inc c/d/i HEAD: Atraumatic. Normocephalic. EYES: Pupils equal and round. No scleral icterus. No injection or drainage. ENT: No nasal bleeding or discharge. Mucous membranes pink and moist. NECK: Trachea midline. No JVD. CARDIOVASCULAR: Regular rate and rhythm. RESPIRATORY: No accessory muscle use. Clear to auscultation. Breath sounds equal bilaterally. GASTROINTESTINAL: Abdomen soft, non-tender, nondistended. Hepatic and splenic margins not palpable. MUSCULOSKELETAL: Extremities without clubbing, cyanosis, or edema. No obvious deformities. NEUROLOGICAL: Awake and alert. No obvious cranial nerve deficits. Motor grossly within normal limits. 3 out of 5 muscle strength in the arms and legs. Normal speech. PSYCHIATRIC: Appropriate mood and affect; insight and judgment normal. Medications and IVs Current Medications Medications (Trade) Dose Ordered Sig/Grover Route Start Time Stop Time Status Last Admin Lactated Ringer's 1,000 ml @ 30 mls/hr Q24H PRN IV 07/07/17 07:45 07/10/17 07:44 07/07/17 07:51 Sodium Chloride 500 ml @ 30 mls/hr [id number] PRN IV 07/07/17 07:45 07/10/17 07:44 (Lopressor) 25 mg CLAMP JIG ASSEMBLER PRN PO 07/07/17 07:45 07/10/17 07:44 (Betadine 5% Antisepsis Kit) 1 applic CLAMP JIG ASSEMBLER PRN EACH NARE 07/07/17 07:45 07/10/17 07:44 07/07/17 07:51 (Chlorhexidine 2% Cloth) 3 pack CLAMP JIG ASSEMBLER PRN TOPICAL 07/07/17 07:45 07/10/17 07:44 07/07/17 07:51 (Betadine 7.5% Scrub) 1 applic ONCE TOPICAL 07/07/17 07:45 07/10/17 07:44 07/07/17 07:50 (Hibiclens 4% Top Soln) 1 applic ONCE TOPICAL 07/07/17 07:45 07/10/17 07:44 07/07/17 07:50 Cefazolin Sodium 2000 mg/Sodium Chloride 120 ml @ 240 mls/hr CLAMP JIG ASSEMBLER IV 07/07/17 07:45 07/10/17 07:44 07/07/17 10:40 Vancomycin HCl 1000 mg/Sodium Chloride 250 ml @ 250 mls/hr CLAMP JIG ASSEMBLER IV 07/07/17 07:45 07/10/17 07:44 07/07/17 10:35 (Norvasc) 5 mg BID PO 07/07/17 09:00 07/08/17 08:18 (Lipitor) 20 mg HS PO 07/07/17 21:00 07/07/17 22:26 (Synthroid) 50 mcg DAILY@0600 PO 07/07/17 09:30 07/08/17 05:57 (Protonix) 40 mg BID PO 07/07/17 09:30 07/08/17 08:18 (Paxil Cr) 25 mg DAILY PO 07/07/17 09:30 (Carafate) 1 gm BID PO 07/07/17 09:30 07/08/17 08:18 (Ambien) 10 mg HS PRN PO 07/07/17 09:00 (Melatonin) 10 mg HS PRN PO 07/07/17 09:15 Sodium Chloride 1,000 ml @ 100 mls/hr Q10H IV 07/07/17 09:00 07/07/17 13:00 (Morphine Inj) 3 mg Q3H PRN IV PUSH 07/07/17 09:00 07/08/17 17:52 ([place] 7.5-325 Mg) 1 tab Q4H PRN PO 07/07/17 09:00 07/07/17 14:45 ([place] 7.5-325 Mg) 2 tab Q4H PRN PO 07/07/17 09:00 07/08/17 17:04 (Theragran M Tab) 1 tab BID PO 07/08/17 21:00 09/06/17 20:59 (Zofran Inj) 4 mg Q6H PRN IVP 07/07/17 09:00 07/08/17 17:03 (Colace) 100 mg BID PO 07/08/17 21:00 (Benadryl Inj) 25 mg Q6H PRN IV PUSH 07/07/17 09:00 (Lovenox Inj) 30 mg Q24H SQ 07/08/17 11:30 07/08/17 12:03 A/P Assessment and Plan A/P- -L HIP OA, S/P JETHRO JULY 07: PER DR GARCIA, -ACUTE POST OP BLOOD LOSS ANEMIA: TRANSFUSE -HYPOKALEMIA: REPLACED LAST WEEK -UTI, KLEBSIELLA: TREATED PREOP, FINISHED ABX. -HTN: MONITOR BP'S -COPD: EARLY AMBULATION AND IS USAGE -PUD -HYPERGLYCEMIA -IRON DEFICIENCY ANEMIA -ESOPHAGITIS -HYPOTHYROID -GI PROPHYLAXIS: PPI -DVT PROPHYLAXIS: COAGS PER DR GARCIA FOR NOW THANK YOU FOR THE CONSULT, WILL FOLLOW DAILY AND CONTINUE TO SEE OUTPATIENT. Oneil Britton MD Jul 08, 2017 10:30
[2017-07-08] MEDS: ENOXAPARIN SODIUM 30 MG/0.3 ML SYRINGE SQ SCH (12:03)
[2017-07-08] MEDS: MULTIVITAMINS/MINERALS THERAPEUTIC TAB PO SCH (20:12)
[2017-07-08] MEDS: DOCUSATE SODIUM 100 MG CAP PO SCH (20:12)
[2017-07-08] MEDS: ATORVASTATIN 20 MG TAB PO SCH (20:12)
[2017-07-09] VITALS (7 sets, daily range): BP systolic 139–159; BP diastolic 63–89; PULSE 78–90; RESP 16–18; TEMP 98.3–99.7; O2SAT 95–98
[2017-07-09] MEDS: ACETAMINOPHEN/HYDROcodone 325 MG/7.5 MG TAB PO PRN ×5 (00:47→21:39)
[2017-07-09] MEDS: MORPHINE SULFATE 4 MG/ML INJ IV PUSH PRN ×5 (03:10→23:32)
[2017-07-09] MEDS: LEVOTHYROXINE SODIUM 50 MCG TAB PO SCH (05:54)
--- NOTE | 2017-07-09 08:01 | PD.ORT.PN ---
Subjective Post Op Day #: 2 Subjective Remarks having difficulty with pain and anxiety. Objective Vitals Vital Signs Date Time Temp Pulse Resp B/P (MAP) Pulse Ox O2 Delivery O2 Flow Rate FiO2 07/09/17 04:25 98.9 85 18 139/63 (88) 96 07/09/17 00:09 99.3 89 16 139/89 (106) 96 07/08/17 21:06 99.0 80 18 120/62 97 07/08/17 18:47 99.8 86 115/55 (75) 96 07/08/17 18:03 97.8 82 16 133/63 94 07/08/17 17:47 99.3 82 18 142/65 95 07/08/17 16:00 98.8 85 18 145/64 (91) 96 07/08/17 13:36 98.4 77 16 118/56 97 07/08/17 13:12 98.8 80 18 115/56 92 07/08/17 12:20 Room Air 07/08/17 12:00 98.4 80 17 108/55 (72) 95 07/08/17 08:55 Room Air 07/08/17 08:00 98.7 83 18 123/59 (80) 96 I/O 07/08/17 07/08/17 07/08/17 07/09/17 07/09/17 07/09/17 07:00 15:00 23:00 07:00 15:00 23:00 Intake Total 600 ml 480 ml 800 ml Balance 600 ml 480 ml 800 ml Intake Oral 500 ml 480 ml IV Total 100 ml Packed Cells 800 ml # Voids 6 4 3 # Bowel Movements 0 0 Result Diagram: 07/08/17 0530 Imaging Last 24 hours Impressions Hip and Pelvis X-Ray 07/07/17 0855 Signed Impressions: Service Date/Time: Friday, July 07, 2017 13:55 - CONCLUSION: Status post left total hip arthroplasty which is adequate in position. Degenerative changes involving lower lumbar spine. Thomas Wright MD Objective Remarks in bed, nad dressing c/d/i thigh soft neg homans nvi Assessment & Plan Ortho Post Op Day #: 2 Problem List: Assessment and Plan s/p L JETHRO wbat ok to maintain dressing unless saturated lovenox, d/c on asa 81 norco, morphine prn anemia - transfused 2 units yesterday - awaiting CBC from this morning d/c planning home with [facility] and pt - depending on pain control f/up dr. brady 2 weeks Tod Collado Jul 09, 2017 08:01
[2017-07-09] MEDS: PARoxetine 25 MG CONTROLLED RELEASE TAB PO SCH (08:06)
[2017-07-09] MEDS: PANTOPRAZOLE SOD 40 MG DELAYED RELEASE TAB PO SCH ×2 (08:07→19:42)
[2017-07-09] MEDS: amLODIPine BESYLATE 5 MG TAB PO SCH ×2 (08:07→19:42)
[2017-07-09] MEDS: SUCRALFATE 1 GM TAB PO SCH ×2 (08:07→19:42)
[2017-07-09] MEDS: DOCUSATE SODIUM 100 MG CAP PO SCH ×2 (08:08→19:41)
[2017-07-09] MEDS: MULTIVITAMINS/MINERALS THERAPEUTIC TAB PO SCH ×2 (08:08→19:42)
--- NOTE | 2017-07-09 09:21 | HHI.FPPN ---
Subjective Remarks LETHARGIC C/O SEVERE PAIN C/O BEING UNABLE TO MOVE C/O DIZZINESS D/W RN Objective Vitals Vital Signs Date Time Temp Pulse Resp B/P (MAP) Pulse Ox O2 Delivery O2 Flow Rate FiO2 07/09/17 08:00 98.8 90 17 159/70 (99) 95 07/09/17 04:25 98.9 85 18 139/63 (88) 96 07/09/17 00:09 99.3 89 16 139/89 (106) 96 07/08/17 21:06 99.0 80 18 120/62 97 07/08/17 18:47 99.8 86 115/55 (75) 96 07/08/17 18:03 97.8 82 16 133/63 94 07/08/17 17:47 99.3 82 18 142/65 95 07/08/17 16:00 98.8 85 18 145/64 (91) 96 07/08/17 13:36 98.4 77 16 118/56 97 07/08/17 13:12 98.8 80 18 115/56 92 07/08/17 12:20 Room Air 07/08/17 12:00 98.4 80 17 108/55 (72) 95 I/O 07/08/17 07/08/17 07/08/17 07/09/17 07/09/17 07/09/17 07:00 15:00 23:00 07:00 15:00 23:00 Intake Total 600 ml 480 ml 800 ml Balance 600 ml 480 ml 800 ml Intake Oral 500 ml 480 ml IV Total 100 ml Packed Cells 800 ml # Voids 6 4 3 # Bowel Movements 0 0 Result Diagram: 07/08/17 0530 Objective Remarks GENERAL: SKIN: Warm and dry. inc c/d/i HEAD: Atraumatic. Normocephalic. EYES: Pupils equal and round. No scleral icterus. No injection or drainage. ENT: No nasal bleeding or discharge. Mucous membranes pink and moist. NECK: Trachea midline. No JVD. CARDIOVASCULAR: Regular rate and rhythm. RESPIRATORY: No accessory muscle use. Clear to auscultation. Breath sounds equal bilaterally. GASTROINTESTINAL: Abdomen soft, non-tender, nondistended. Hepatic and splenic margins not palpable. MUSCULOSKELETAL: Extremities without clubbing, cyanosis, or edema. No obvious deformities. NEUROLOGICAL: Awake and alert. No obvious cranial nerve deficits. Motor grossly within normal limits. 3 out of 5 muscle strength in the arms and legs. Normal speech. PSYCHIATRIC: Appropriate mood and affect; insight and judgment normal. Medications and IVs Current Medications Medications (Trade) Dose Ordered Sig/Grover Route Start Time Stop Time Status Last Admin Lactated Ringer's 1,000 ml @ 30 mls/hr Q24H PRN IV 07/07/17 07:45 07/10/17 07:44 07/07/17 07:51 Sodium Chloride 500 ml @ 30 mls/hr [id number] PRN IV 07/07/17 07:45 07/10/17 07:44 (Lopressor) 25 mg [employer] PRN PO 07/07/17 07:45 07/10/17 07:44 (Betadine 5% Antisepsis Kit) 1 applic [employer] PRN EACH NARE 07/07/17 07:45 07/10/17 07:44 07/07/17 07:51 (Chlorhexidine 2% Cloth) 3 pack [employer] PRN TOPICAL 07/07/17 07:45 07/10/17 07:44 07/07/17 07:51 (Betadine 7.5% Scrub) 1 applic ONCE TOPICAL 07/07/17 07:45 07/10/17 07:44 07/07/17 07:50 (Hibiclens 4% Top Soln) 1 applic ONCE TOPICAL 07/07/17 07:45 07/10/17 07:44 07/07/17 07:50 Cefazolin Sodium 2000 mg/Sodium Chloride 120 ml @ 240 mls/hr [employer] IV 07/07/17 07:45 07/10/17 07:44 07/07/17 10:40 Vancomycin HCl 1000 mg/Sodium Chloride 250 ml @ 250 mls/hr [employer] IV 07/07/17 07:45 07/10/17 07:44 07/07/17 10:35 (Norvasc) 5 mg BID PO 07/07/17 09:00 07/09/17 08:07 (Lipitor) 20 mg HS PO 07/07/17 21:00 07/08/17 20:12 (Synthroid) 50 mcg DAILY@0600 PO 07/07/17 09:30 07/09/17 05:54 (Protonix) 40 mg BID PO 07/07/17 09:30 07/09/17 08:07 (Paxil Cr) 25 mg DAILY PO 07/07/17 09:30 (Carafate) 1 gm BID PO 07/07/17 09:30 07/09/17 08:07 (Ambien) 10 mg HS PRN PO 07/07/17 09:00 (Melatonin) 10 mg HS PRN PO 07/07/17 09:15 Sodium Chloride 1,000 ml @ 100 mls/hr Q10H IV 07/07/17 09:00 07/07/17 13:00 (Morphine Inj) 3 mg Q3H PRN IV PUSH 07/07/17 09:00 07/09/17 13:53 ([place] 7.5-325 Mg) 1 tab Q4H PRN PO 07/07/17 09:00 07/07/17 14:45 ([place] 7.5-325 Mg) 2 tab Q4H PRN PO 07/07/17 09:00 07/09/17 11:52 (Theragran M Tab) 1 tab BID PO 07/08/17 21:00 09/06/17 20:59 07/09/17 08:08 (Zofran Inj) 4 mg Q6H PRN IVP 07/07/17 09:00 07/08/17 17:03 (Colace) 100 mg BID PO 07/08/17 21:00 07/09/17 08:08 (Benadryl Inj) 25 mg Q6H PRN IV PUSH 07/07/17 09:00 (Lovenox Inj) 30 mg Q24H SQ 07/08/17 11:30 07/09/17 11:53 A/P Assessment and Plan A/P- -L HIP OA, S/P JETHRO JULY 07: PER DR GARCIA, HOSPITAL MED MEDICALLY NECESSARY, PT IS VERY WEAK, SIGNIFICANT PAIN AND WANTS TO GO HOME AND AVOID SNF. PT SHOULD DO WELL LONG HAS A HOSPITAL BED. -ACUTE POST OP BLOOD LOSS ANEMIA: TRANSFUSED -HYPOKALEMIA: START KCL QD, CHECK MG LEVEL, -UTI, KLEBSIELLA: TREATED PREOP, FINISHED ABX. -HTN: MONITOR BP'S -COPD: EARLY AMBULATION AND IS USAGE -PUD -HYPERGLYCEMIA -IRON DEFICIENCY ANEMIA -ESOPHAGITIS -HYPOTHYROID -GI PROPHYLAXIS: PPI -DVT PROPHYLAXIS: COAGS PER DR GARCIA FOR NOW THANK YOU FOR THE CONSULT, WILL FOLLOW DAILY AND CONTINUE TO SEE OUTPATIENT. Oneil Britton MD Jul 09, 2017 09:21
[2017-07-09 09:22] LABS: HEMATOCRIT 31.1 % (35.0-46.0); HEMOGLOBIN 10.7 GM/DL (11.6-15.3); MEAN CELL VOLUME 87.5 FL (80.0-100.0); MEAN CORPUSCULAR HEMOGLOBIN 30.2 PG (27.0-34.0); MEAN CORPUSCULAR HGB CONC 34.5 % (32.0-36.0); MEAN PLATELET VOLUME 8.2 FL (7.0-11.0); PLATELET COUNT 251 TH/MM3 (150-450); RED BLOOD COUNT 3.56 MIL/MM3 (4.00-5.30); RED CELL DISTRIBUTION WIDTH 15.7 % (11.6-17.2); WHITE BLOOD COUNT 6.6 TH/MM3 (4.0-11.0)
[2017-07-09 09:41] LABS: BICARBONATE 30.5 MEQ/L (21.0-32.0); CALCIUM 8.3 MG/DL (8.5-10.1); CREATININE 0.45 MG/DL (0.50-1.00)
[2017-07-09] MEDS: SODIUM CHLOR 0.9% 1000 ML INJ 1,000 ML IV SCH ×2 (11:00→19:42)
[2017-07-09] MEDS: ENOXAPARIN SODIUM 30 MG/0.3 ML SYRINGE SQ SCH (11:53)
[2017-07-09] MEDS ORDERED: HOSP BED2 (13:54)
[2017-07-09] MEDS: POTASSIUM CHLORIDE 10 MEQ CONTROLLED RELEASE TAB PO SCH (18:13)
[2017-07-09] MEDS: ATORVASTATIN 20 MG TAB PO SCH (19:42)
[2017-07-10] MEDS: ACETAMINOPHEN/HYDROcodone 325 MG/7.5 MG TAB PO PRN ×7 (02:26→21:47)
[2017-07-10] MEDS: LEVOTHYROXINE SODIUM 50 MCG TAB PO SCH (05:50)
[2017-07-10] MEDS: SODIUM CHLOR 0.9% 1000 ML INJ 1,000 ML IV SCH ×2 (07:00→17:00)
[2017-07-10 07:23] LABS: HEMATOCRIT 30.7 % (35.0-46.0); HEMOGLOBIN 10.5 GM/DL (11.6-15.3); MEAN CELL VOLUME 87.2 FL (80.0-100.0); MEAN CORPUSCULAR HGB CONC 34.4 % (32.0-36.0); PLATELET COUNT 256 TH/MM3 (150-450); RED BLOOD COUNT 3.52 MIL/MM3 (4.00-5.30); RED CELL DISTRIBUTION WIDTH 15.7 % (11.6-17.2); WHITE BLOOD COUNT 6.9 TH/MM3 (4.0-11.0)
[2017-07-10 07:53] VITALS: BP 155/68; PULSE 90; RESP 17; TEMP 98.2; O2SAT 99
--- NOTE | 2017-07-10 08:39 | PD.ORT.PN ---
Subjective Post Op Day #: 3 Subjective Remarks having difficulty with pain and anxiety. severe pain. Objective Vitals Vital Signs Date Time Temp Pulse Resp B/P (MAP) Pulse Ox O2 Delivery O2 Flow Rate FiO2 07/10/17 07:53 98.2 90 17 155/68 (97) 99 07/09/17 23:57 98.3 79 18 148/68 (94) 95 07/09/17 20:00 99.6 83 18 148/67 (94) 98 07/09/17 19:55 98 Room Air 07/09/17 15:40 99.7 78 17 153/65 (94) 95 07/09/17 11:56 99.0 82 18 156/72 (100) 96 I/O 07/09/17 07/09/17 07/09/17 07/10/17 07/10/17 07/10/17 07:00 15:00 23:00 07:00 15:00 23:00 Intake Total 960 ml 400 ml Balance 960 ml 400 ml Intake Oral 960 ml 400 ml # Voids 3 3 4 # Bowel Movements 0 0 Result Diagram: 07/10/17 0555 07/09/17 0747 Imaging Last 24 hours Impressions Hip and Pelvis X-Ray 07/07/17 0855 Signed Impressions: Service Date/Time: Friday, July 07, 2017 13:55 - CONCLUSION: Status post left total hip arthroplasty which is adequate in position. Degenerative changes involving lower lumbar spine. Thomas Wright MD Objective Remarks in bed, pain with any movement dressing c/d/i thigh soft neg homans nvi Assessment & Plan Ortho Post Op Day #: 3 Problem List: Assessment and Plan s/p L JETHRO wbat ok to maintain dressing unless saturated lovenox, d/c on asa 81 norco, morphine prn - declines changing norco to percocet anemia - transfused 2 Friday xray L hip - pain greater than expected d/c planning home with [facility] and pt - depending on pain control. may need to consider snf. patient would benefit from hospital bed at home for recovery, medically indicated f/up dr. brady 2 weeks Tod Collado Jul 10, 2017 08:39
[2017-07-10] MEDS: SUCRALFATE 1 GM TAB PO SCH ×2 (09:20→21:47)
[2017-07-10] MEDS: amLODIPine BESYLATE 5 MG TAB PO SCH ×2 (09:20→21:47)
[2017-07-10] MEDS: PANTOPRAZOLE SOD 40 MG DELAYED RELEASE TAB PO SCH ×2 (09:21→21:47)
[2017-07-10] MEDS: PARoxetine 25 MG CONTROLLED RELEASE TAB PO SCH (09:21)
[2017-07-10] MEDS: POTASSIUM CHLORIDE 10 MEQ CONTROLLED RELEASE TAB PO SCH (09:21)
[2017-07-10] MEDS: MULTIVITAMINS/MINERALS THERAPEUTIC TAB PO SCH ×2 (09:22→21:47)
[2017-07-10] MEDS: DOCUSATE SODIUM 100 MG CAP PO SCH ×2 (09:22→21:47)
[2017-07-10 11:32] VITALS: BP 112/67; PULSE 75; RESP 18; TEMP 98.5; O2SAT 97
[2017-07-10] MEDS: ENOXAPARIN SODIUM 30 MG/0.3 ML SYRINGE SQ SCH (12:20)
--- NOTE | 2017-07-10 14:47 | RADRPT ---
EXAM DATE/TIME: 07/10/2017 13:55 [facility] COMPARISON: HIP LEFT (AP&LAT 2/3VWS) WO AP PELVIS, July 07, 2017, 11:52. INDICATIONS : Post left hip arthroplasty Burning pain left hip surgery 07/07 MEDICAL HISTORY : Arthritis. Hypertension SURGICAL HISTORY : Hysterectomy. ORIF right knee fracture. ORIF right wrist fracture ENCOUNTER: Initial ACUITY: 4 - 6 days PAIN SCORE: 10/10 LOCATION: Left Hip FINDINGS: A two view examination of the left hip was performed. Frontal view the pelvis demonstrates bilateral total hip arthroplasties. Osseous structures are otherwise intact without fracture or dislocation. He terogeneous density in the soft tissues overlying the left hip are likely related to the recent surgi kita intervention although a focal cellulitis cannot be excluded. Atherosclerotic calcification of the regional vasculature. CONCLUSION: 1. Left total hip arthroplasty is radiographically intact without fracture or dislocation. 2. Heterogeneous density in the overlying soft tissues is probably related to recent surgical interve ntion although soft tissue cellulitis can have a similar appearance and therefore, cannot be excluded on the radiograph alone. 3. Atherosclerotic calcification of the regional vasculature Santosh Olguin MD on July 10, 2017 at 14:41 Board Certified Radiologist. This report was verified electronically.
[2017-07-10] MEDS: ONDANSETRON HCL 4 MG/2 ML VIAL IVP PRN (15:46)
[2017-07-10 16:07] VITALS: BP 124/55; PULSE 79; RESP 17; TEMP 98.6; O2SAT 94
--- NOTE | 2017-07-10 16:22 | HHI.FPPN ---
Subjective Remarks pain not particularly controlled conference with DGTR d/w RN conf w case mgmt reqs hospital bed, ordered Objective Vitals Vital Signs Date Time Temp Pulse Resp B/P (MAP) Pulse Ox O2 Delivery O2 Flow Rate FiO2 07/10/17 16:07 98.6 79 17 124/55 (78) 94 07/10/17 11:32 98.5 75 18 112/67 (82) 97 07/10/17 07:53 98.2 90 17 155/68 (97) 99 07/09/17 23:57 98.3 79 18 148/68 (94) 95 07/09/17 20:00 99.6 83 18 148/67 (94) 98 07/09/17 19:55 98 Room Air I/O 07/09/17 07/09/17 07/09/17 07/10/17 07/10/17 07/10/17 07:00 15:00 23:00 07:00 15:00 23:00 Intake Total 960 ml 400 ml Balance 960 ml 400 ml Intake Oral 960 ml 400 ml # Voids 3 3 4 # Bowel Movements 0 0 Result Diagram: 07/10/17 0555 07/09/17 0747 Objective Remarks GENERAL: SKIN: Warm and dry. inc c/d/i HEAD: Atraumatic. Normocephalic. EYES: Pupils equal and round. No scleral icterus. No injection or drainage. ENT: No nasal bleeding or discharge. Mucous membranes pink and moist. NECK: Trachea midline. No JVD. CARDIOVASCULAR: Regular rate and rhythm. RESPIRATORY: No accessory muscle use. Clear to auscultation. Breath sounds equal bilaterally. GASTROINTESTINAL: Abdomen soft, non-tender, nondistended. Hepatic and splenic margins not palpable. MUSCULOSKELETAL: Extremities without clubbing, cyanosis, or edema. No obvious deformities. NEUROLOGICAL: Awake and alert. No obvious cranial nerve deficits. Motor grossly within normal limits. 3 out of 5 muscle strength in the arms and legs. Normal speech. PSYCHIATRIC: Appropriate mood and affect; insight and judgment normal. A/P Assessment and Plan A/P- -L HIP OA, S/P JETHRO JULY 07: LIKELY ABLE TO DC TOMORROW, -ACUTE POST OP BLOOD LOSS ANEMIA: TRANSFUSED -HYPOKALEMIA: STARTED KCL QD, check K level -UTI, KLEBSIELLA: TREATED PREOP, FINISHED ABX. -HTN: MONITOR BP'S -COPD: EARLY AMBULATION AND IS USAGE -PUD -HYPERGLYCEMIA -IRON DEFICIENCY ANEMIA -ESOPHAGITIS -HYPOTHYROID -GI PROPHYLAXIS: PPI -DVT PROPHYLAXIS: COAGS PER DR GARCIA FOR NOW THANK YOU FOR THE CONSULT, WILL FOLLOW DAILY AND CONTINUE TO SEE OUTPATIENT. Oneil Britton MD Jul 10, 2017 16:22
[2017-07-10 20:00] VITALS: BP 107/59; PULSE 70; RESP 16; TEMP 98.6; O2SAT 96
[2017-07-10] MEDS: ATORVASTATIN 20 MG TAB PO SCH (21:47)
[2017-07-11] VITALS: BP 109/71; PULSE 74; RESP 18; TEMP 98.4; O2SAT 95
[2017-07-11] MEDS: SODIUM CHLOR 0.9% 1000 ML INJ 1,000 ML IV SCH ×2 (02:02→13:00)
[2017-07-11] MEDS: ACETAMINOPHEN/HYDROcodone 325 MG/7.5 MG TAB PO PRN ×4 (02:50→17:20)
[2017-07-11] MEDS: LEVOTHYROXINE SODIUM 50 MCG TAB PO SCH (06:08)
[2017-07-11] MEDS: MULTIVITAMINS/MINERALS THERAPEUTIC TAB PO SCH (07:53)
[2017-07-11] MEDS: amLODIPine BESYLATE 5 MG TAB PO SCH (07:53)
[2017-07-11] MEDS: SUCRALFATE 1 GM TAB PO SCH (07:53)
[2017-07-11] MEDS: POTASSIUM CHLORIDE 10 MEQ CONTROLLED RELEASE TAB PO SCH (07:53)
[2017-07-11] MEDS: PARoxetine 25 MG CONTROLLED RELEASE TAB PO SCH (07:54)
[2017-07-11] MEDS: DOCUSATE SODIUM 100 MG CAP PO SCH (07:54)
[2017-07-11] MEDS: PANTOPRAZOLE SOD 40 MG DELAYED RELEASE TAB PO SCH (07:54)
[2017-07-11 08:00] VITALS: BP 131/59; PULSE 75; RESP 16; TEMP 98.1; O2SAT 96
--- NOTE | 2017-07-11 09:37 | HHI.FPPN ---
Subjective Remarks waiting on hospital bed d/w PT c/o pain, wants to home regardless if the bed is there or not. Objective Vitals Vital Signs Date Time Temp Pulse Resp B/P (MAP) Pulse Ox O2 Delivery O2 Flow Rate FiO2 07/11/17 08:00 98.1 75 16 131/59 (83) 96 07/11/17 04:11 18 07/11/17 00:00 98.4 74 18 109/71 (84) 95 07/10/17 22:16 Room Air 07/10/17 20:00 98.6 70 16 107/59 (75) 96 07/10/17 16:07 98.6 79 17 124/55 (78) 94 07/10/17 11:32 98.5 75 18 112/67 (82) 97 I/O 07/10/17 07/10/17 07/10/17 07/11/17 07/11/17 07/11/17 07:00 15:00 23:00 07:00 15:00 23:00 Intake Total 400 ml 960 ml 240 ml Balance 400 ml 960 ml 240 ml Intake Oral 400 ml 960 ml 240 ml # Voids 4 2 2 # Bowel Movements 0 0 0 Result Diagram: 07/10/17 0555 07/10/172040 Objective Remarks GENERAL: SKIN: Warm and dry. inc c/d/i HEAD: Atraumatic. Normocephalic. EYES: Pupils equal and round. No scleral icterus. No injection or drainage. ENT: No nasal bleeding or discharge. Mucous membranes pink and moist. NECK: Trachea midline. No JVD. CARDIOVASCULAR: Regular rate and rhythm. RESPIRATORY: No accessory muscle use. Clear to auscultation. Breath sounds equal bilaterally. GASTROINTESTINAL: Abdomen soft, non-tender, nondistended. Hepatic and splenic margins not palpable. MUSCULOSKELETAL: Extremities without clubbing, cyanosis, or edema. No obvious deformities. NEUROLOGICAL: Awake and alert. No obvious cranial nerve deficits. Motor grossly within normal limits. 3 out of 5 muscle strength in the arms and legs. Normal speech. PSYCHIATRIC: Appropriate mood and affect; insight and judgment normal. A/P Assessment and Plan A/P- -L HIP OA, S/P JETHRO JULY 07: LIKELY ABLE TO DC TOMORROW, -ACUTE POST OP BLOOD LOSS ANEMIA: TRANSFUSED -HYPOKALEMIA: STARTED KCL QD, check K level -UTI, KLEBSIELLA: TREATED PREOP, FINISHED ABX. -HTN: MONITOR BP'S -COPD: EARLY AMBULATION AND IS USAGE -PUD -HYPERGLYCEMIA -IRON DEFICIENCY ANEMIA -ESOPHAGITIS -HYPOTHYROID -GI PROPHYLAXIS: PPI -DVT PROPHYLAXIS: COAGS PER DR GARCIA FOR NOW THANK YOU FOR THE CONSULT, WILL FOLLOW DAILY AND CONTINUE TO SEE OUTPATIENT. Pt is post op L JETHRO, has COPD, blood loss anemia, and electrolyte abnormailites. She is very weak, in significant postoperative pain, and is unable to get up from a regular bed or mattress. It is medically necessary for her to have a home hospital bed due to the aforementioned problems. Otherwise pt would have to go to group home, and if she does not receive a hospital bed she will decline and return to the ER. Oneil Britton MD Jul 11, 2017 09:37
--- NOTE | 2017-07-11 11:43 | PD.ORT.PN ---
Subjective Post Op Day #: 4 Subjective Remarks pain seems to be improving. Objective Vitals Vital Signs Date Time Temp Pulse Resp B/P (MAP) Pulse Ox O2 Delivery O2 Flow Rate FiO2 07/11/17 08:00 98.1 75 16 131/59 (83) 96 07/11/17 04:11 18 07/11/17 00:00 98.4 74 18 109/71 (84) 95 07/10/17 22:16 Room Air 07/10/17 20:00 98.6 70 16 107/59 (75) 96 07/10/17 16:07 98.6 79 17 124/55 (78) 94 I/O 07/10/17 07/10/17 07/10/17 07/11/17 07/11/17 07/11/17 07:00 15:00 23:00 07:00 15:00 23:00 Intake Total 400 ml 960 ml 240 ml Balance 400 ml 960 ml 240 ml Intake Oral 400 ml 960 ml 240 ml # Voids 4 2 2 # Bowel Movements 0 0 0 Result Diagram: 07/10/17 0507/10/172040 Imaging Last 24 hours Impressions Hip and Pelvis X-Ray 07/07/17854 Signed Impressions: Service Date/Time: Friday, July 07, 2017 13:55 - CONCLUSION: Status post left total hip arthroplasty which is adequate in position. Degenerative changes involving lower lumbar spine. Thomas Wright MD Objective Remarks sitting in chair, nad dressing c/d/i thigh soft neg homans nvi Assessment & Plan Ortho Post Op Day #: 4 Problem List: Assessment and Plan s/p L JETHRO wbat ok to maintain dressing unless saturated lovenox, d/c on asa 81 norco anemia - transfused 2 units Friday - stable xray L hip - no complications d/c planning home with [facility] and pt - cleared today patient would benefit from hospital bed at home for recovery, medically indicated f/up dr. brady 2 weeks Tod Collado Jul 11, 2017 11:43
[2017-07-11 12:00] VITALS: BP 103/53; PULSE 82; RESP 16; TEMP 97.9; O2SAT 96
[2017-07-11] MEDS: ENOXAPARIN SODIUM 30 MG/0.3 ML SYRINGE SQ SCH (12:52)
[2017-07-11] MEDS ORDERED: POTASSIUM CHLORIDE 20 MEQ CONTROLLED RELEASE TAB PO ONE (14:30)
[2017-07-11 17:24] LABS: BILIRUBIN, URINE NEG (NEG); BLOOD, URINE NEG (NEG); GLUCOSE,URINE NEG (NEG); HYALINE CAST, URINE 8 /lpf (RARE); KETONE, URINE NEG (NEG); MUCUS URINE MANY /lpf (OCC); NITRITE,URINE NEG (NEG); SQUAMOUS EPITHELIAL CELL URINE 5 /hpf (0-5); URINE COLOR DARK-YELLOW (YELLW/STRAW); URINE LEUKOCYTE ESTERASE NEG (NEG)
== END 2017-07-11 17:38 | disposition home health service (06) | DRG 470 ==
LOC: HSDI 07:05 → N06B 17:57
PROVIDERS: ADMIT Orthopaedic Surgery Sports Medicine; ATTEND Orthopaedic Surgery Sports Medicine
PROC: 0SRB02A Replacement of Left Hip Joint with Metal on Polyethylene Synthetic Substitute, Uncemented, Open Approach (ICD-10-PCS; principal; 2017-07-07 10:25)
PROC: 30233N1 Transfusion of Nonautologous Red Blood Cells into Peripheral Vein, Percutaneous Approach (ICD-10-PCS; 2017-07-08)
DX: M16.12 Unilateral primary osteoarthritis, left hip (principal); J44.9 Chronic obstructive pulmonary disease, unspecified; D62 Acute posthemorrhagic anemia; I10 Essential (primary) hypertension; E03.9 Hypothyroidism, unspecified; M24.852 Other specific joint derangements of left hip, not elsewhere classified; K21.9 Gastro-esophageal reflux disease without esophagitis; E78.5 Hyperlipidemia, unspecified; E87.6 Hypokalemia; F41.9 Anxiety disorder, unspecified; Z87.11 Personal history of peptic ulcer disease; Z87.891 Personal history of nicotine dependence; Z96.641 Presence of right artificial hip joint
CPT/HCPCS: 36430; 73502; 76000; 80048; 81001; 83735; 84132; 85027; 86850; 86900; 86901; 86920; 94150; C1776; C9290; J0131; J0690; J1100; J1580; J1650; J2250; J2270; J2405; J3010; J3370; J7030; J7050; J7120; P9016